=== PATIENT | male | born 1980 | race Caucasian/White ===

== ENCOUNTER 2016-09-17 18:24 | Emergency (ER) | payer OTHER ==
[~2016-09-17 18:24] MED LIST: /ESCI10TA PO; ACET50TA PO; ARTI99.0 OP; CLON-412 PO; CLON0.5T PO; DULO30CA PO; FLEX10TA2 PO; GABA-283 PO; LEXA1TAB PO; LOTE0.5S OU; META800T82 PO; MOBI7.5T10 PO; NEUR300C PO; NEXI20CA PO; PERC5TAB6 PO; PREV30CA6 PO; REST0.05 OU; ROBA750T4 PO; SOMA350T PO; SUMA25TA3 PO; TIZA2CAP3 PO; ULTR50TA PO; VALI5TAB PO; VENTAER INH; VITA200016 PO; VITAD1000T FT; XANA1TAB2 PO; flexeril PO
[2016-09-17] MEDS ORDERED: METHOCARBAMOL 500 MG TAB As Ordered ONE (21:22)
[2016-09-17] MEDS ORDERED: OXYCODONE/APAP 5MG/325MG(BULK) 1 TAB TAB As Ordered ONE (21:23)
--- NOTE | 2016-09-17 21:29 | EDDOCDS ---
Nurse's Notes [facility] Name: Teddy Hammer Age: 36 yrs Sex: Male : 1980 Arrival Date: 09/17/2016 Time: 18:24 Bed PR2 Private MD: Diagnosis: Radiculopathy, lumbosacral region Presentation: 09/17 18:33 Presenting complaint: Patient states: Patient reports that he had surgery on low back a jmb few years ago, bent over and fell and states he felt a pop in his low back. Patient reports now he feels like his legs are going "tingling". Presenting complaint: Patient states: Patient reports incident happened two days ago. Patient reports trying heating pad but did not help. Acute neurological deficits are not present. Mechanism of Injury: Fall from standing position. Adult Sepsis Screening: The patient does not have new or worsening altered mentation. Patient's respiratory rate is less than 22. Systolic blood pressure is greater than 100. Patient has a qSOFA score of 0- Negative Sepsis Screen. Suicide/Homicide risk assessment- the patient denies having any suicidal and/or homicidal ideations and does not present with any other emotional, behavioral or mental health complaints. Status: Patient is not a patient service coordinator or dependent. Transition of care: patient was not received from another setting of care. 18:33 Acuity: DAMIEN Level 4 [facility] 18:33 Method Of Arrival: Walkin/Carried/Asstd [facility] Triage Assessment: 18:38 General: Appears uncomfortable. Pain: Location: lumbar area, left low back and right jmb low back Pain currently is 7 out of 10 on a pain scale. HIV screening NA for this visit Offered previously. Neurological: Level of Consciousness is awake, alert, obeys commands, Oriented to person, place, time, Speech is normal, Facial symmetry appears normal, Facial symmetry: tongue is midline. Respiratory: Airway is patent Respiratory effort is even, unlabored, Respiratory pattern is regular, symmetrical. Derm: Skin is pink, warm & dry. Musculoskeletal: Range of motion limited in all extremities. Historical: - Allergies: ACETAMINOPHEN; cephalexin (Hives, Swelling); - Home Meds: 1. Protonix 40 mg Oral TbEC 1 tab once daily 2. Lexapro 10 mg Oral tab 1 tab once daily 3. clonidine HCl 0.1 mg Oral tab 1 tab once daily 4. Imitrex 25 mg Oral tab 1 tab as needed 5. oxycodone 5 mg Oral tab 1 tab as needed 6. Vitamin C 500 mg Oral cpER daily 7. Vitamin D Oral 1,000 unit daily - PMHx: Migraines; GERD; Anxiety; anxiety/depression; - PSHx: back surgery; left leg nerve reattachment; - Social history: Smoking status: Patient states was never smoker of tobacco. No barriers to communication noted, The patient speaks fluent Serbian, Speaks appropriately for age. - Family history: Not pertinent. - : The pt / caregiver states he / she is not on anticoagulants. Home medication list is obtained from the patient. - Exposure Risk Screening:: None identified. Screenin:26 Screening information is obtained from the patient. Fall risk: No risks identified. jmb Assistance ADL's: requires no assistance with activities of daily living. Abuse/DV Screen: The patient / caregiver reports he/she is: not in a situation that causes fear, pain or injury. Nutritional screening: No deficits noted. Advance Directives: Currently, there is no health care proxy. There is no active DNR order. There is no living will. There is no Power of Associate Quality Engineer. home support is adequate. Assessment: 21:26 General: Patient instructed on discharge instructions. Patient asked if there were any b questions regarding discharge, patient stated no. Patient signed discharge instructions. Patient discharged in stable condition. . Vital Signs: 18:26 BP 146 / 76 RA Sitting (auto/reg); Pulse 65; Resp 18; Temp 97.4(O); Pulse Ox 97% on d R/A; Weight 131.54 kg (R); Height 6 ft. 2 in. (187.96 cm) (R); Pain 7/10; 21:15 BP 157 / 89; Pulse 57; Resp 20; Temp 98.1(TE); Pulse Ox 98% on R/A; Pain 8/10; ar3 18:26 Body Mass Index 37.23 (131.54 kg, 187.96 cm) [facility] Vitals: 18:26 Log In Time: September 17, 2016 at 18:15. [facility] ED Course: 18:25 Patient visited by Alex Osorio PCA. [facility] 18:25 Patient moved to Waiting jrd 18:27 Patient visited by Alex Osorio PCA. jrd 18:27 Patient moved to Pre RCE jrd 18:35 Triage Initiated jmb 19:37 Patient moved to Triage 3 ar3 20:02 Mike Myers PA is PHCP. mo1 20:02 Guerrero Schulte DO is Attending Physician. mo1 20:25 Patient visited by Mike Myers PA. mo1 20:27 Patient moved to TR1 ar3 20:46 Patient moved to Radiology tom 21:09 Patient moved to TR1 tom 21:11 Patient moved to PR2 / 26 ar3 21:15 Patient visited by Maria Victoria Alicea PCA. ar3 21:21 Lynn Shin is Referral Physician. mo1 21:21 Ayush Connell is Referral Physician. mo1 21:26 The patient / caregiver is instructed regarding the plan of care and ED course. jmb 21:26 No IV's were initiated during this patient's visit. No procedures done that require jmb assistance. Administered Medications: 21:26 Drug: oxyCODONE-acetaminophen 4 pack 1 packets [oxycodone-acetaminophen 5 mg-325 mg jmb tablet (1 tabs)] {Co-Signature: nn1 (Regulo Dos Santos RN).} Route: PO; 21:26 Drug: Methocarbamol 1 grams [methocarbamol 500 mg tablet (2 tabs)] Route: PO; jmb Order Results: There are currently no results for this order. Outcome: 21:22 Discharge ordered by Provider. mo1 21:26 Discharge Assessment: Patient awake, alert and oriented x 3. No cognitive and/or jmb functional deficits noted. Patient verbalized understanding of disposition instructions. Patient awake and alert. obeys commands, Oriented to person, place and time. Patient verbalized understanding of disposition instructions. Patient has no functional deficits. patient administered narcotics - no. The following High Risk Discharge criteria are identified: None. Discharged to home ambulatory. Condition: stable Condition: improved. Discharge instructions given to patient, Instructed on discharge instructions, follow up and referral plans. medication usage, Demonstrated understanding of instructions, medications, Pt was receptive of discharge instructions/ teaching. Prescriptions given X 2, Work note provided to patient. No special radiology studies were completed. Property sent home with patient. 21:28 Patient left the ED. jmb Signatures: Myles Mobley Alicia, DEVELOPER AUTOMATIC DEVELOPER AUTOMATIC ar3 Mike Myers PA PA mo1 Gustabo Cardoza,RN RN jmb Alex Osorio, DEVELOPER AUTOMATIC DEVELOPER AUTOMATIC jrd Regulo Dos Santos RN nn1 MTDD
--- NOTE | 2016-09-17 21:29 | EDDOCDS ---
Physician Documentation [facility] Name: Teddy Hammer Age: 36 yrs Sex: Male : 1980 Arrival Date: 09/17/2016 Time: 18:24 Bed PR Private MD: Disposition: 09/17/16 21:22 Discharged to Home/Self Care. Impression: Radiculopathy, lumbosacral region. - Condition is Stable. - Discharge Instructions: Lumbosacral Radiculopathy. - Prescriptions for Percocet 5- 325 mg Oral Tablet - take 1 tablet by ORAL route every 6 hours As needed MDD: 4 tabs; 20 tablet. Robaxin 500 mg Oral Tablet - take 2 tablet by ORAL route every 6 hours As needed; 40 tablet. - Medication Reconciliation, Work Release Form - 2 day, Local Pharmacy Hours form. - Follow up: Private Physician; When: Call to arrange an appointment; Reason: Recheck today's complaints, Continuance of care. Follow up: Lynn Shin; When: Call to arrange an appointment; Reason: Recheck today's complaints, Continuance of care. Follow up: Ayush Connell; When: Call to arrange an appointment; Reason: Recheck today's complaints, Continuance of care. - Problem is new. - Symptoms are unchanged. Historical: - Allergies: ACETAMINOPHEN; cephalexin (Hives, Swelling); - Home Meds: 1. Protonix 40 mg Oral TbEC 1 tab once daily 2. Lexapro 10 mg Oral tab 1 tab once daily 3. clonidine HCl 0.1 mg Oral tab 1 tab once daily 4. Imitrex 25 mg Oral tab 1 tab as needed 5. oxycodone 5 mg Oral tab 1 tab as needed 6. Vitamin C 500 mg Oral cpER daily 7. Vitamin D Oral 1,000 unit daily - PMHx: Migraines; GERD; Anxiety; anxiety/depression; - PSHx: back surgery; left leg nerve reattachment; - Social history: Smoking status: Patient states was never smoker of tobacco. No barriers to communication noted, The patient speaks fluent Lao, Speaks appropriately for age. - Family history: Not pertinent. - : The pt / caregiver states he / she is not on anticoagulants. Home medication list is obtained from the patient. - Exposure Risk Screening:: None identified. Vital Signs: 09/17 18:26 BP 146 / 76 RA Sitting (auto/reg); Pulse 65; Resp 18; Temp 97.4(O); Pulse Ox 97% on jrd R/A; Weight 131.54 kg / 290 lbs (R); Height 6 ft. 2 in. (187.96 cm) (R); Pain 7/10; 21:15 BP 157 / 89; Pulse 57; Resp 20; Temp 98.1(TE); Pulse Ox 98% on R/A; Pain 8/10; ar3 18:26 Body Mass Index 37.23 (131.54 kg, 187.96 cm) jrd MDM: 20:28 Spine. Lumbosacral, Complete Ordered. EDMT 20:55 Financial registration complete. sarabjit 21:20 oxyCODONE-acetaminophen 4 pack 5 mg-325 mg 1 packets PO once; Dispense with pt, take as mo1 per instruction on package ordered. 21:20 Methocarbamol 1 grams PO once ordered. mo1 Administered Medications: 21:26 Drug: oxyCODONE-acetaminophen 4 pack 1 packets [oxycodone-acetaminophen 5 mg-325 mg jmb tablet (1 tabs)] {Co-Signature: nn1 (Regulo Dos Santos RN).} Route: PO; 21:26 Drug: Methocarbamol 1 grams [methocarbamol 500 mg tablet (2 tabs)] Route: PO; kathy Signatures: Dispatcher [employer] EDMT Mike Myers PA PA mo1 Gustabo CardozaRN Nuris Lyles RN nn1 MTDD
--- NOTE | 2016-09-18 08:22 | REP ---
LUMBAR SPINE: The bony density, bodies of the vertebrae, neural arches and disc spaces are normal. There is no fracture. The remaining structures of the abdomen and pelvis are unremarkable. IMPRESSION: There is no fracture of the spine identified. Unreviewed
--- NOTE | 2016-09-19 22:29 | EDDOCDS ---
Nurse's Notes [facility] Name: Teddy Hammer Age: 36 yrs Sex: Male : 1980 Arrival Date: 09/17/2016 Time: 18:24 Bed PR2 Private MD: Diagnosis: Radiculopathy, lumbosacral region Presentation: 09/17 18:33 Presenting complaint: Patient states: Patient reports that he had surgery on low back a jmb few years ago, bent over and fell and states he felt a pop in his low back. Patient reports now he feels like his legs are going "tingling". Presenting complaint: Patient states: Patient reports incident happened two days ago. Patient reports trying heating pad but did not help. Acute neurological deficits are not present. Mechanism of Injury: Fall from standing position. Adult Sepsis Screening: The patient does not have new or worsening altered mentation. Patient's respiratory rate is less than 22. Systolic blood pressure is greater than 100. Patient has a qSOFA score of 0- Negative Sepsis Screen. Suicide/Homicide risk assessment- the patient denies having any suicidal and/or homicidal ideations and does not present with any other emotional, behavioral or mental health complaints. Status: Patient is not a electronic field service engineer or dependent. Transition of care: patient was not received from another setting of care. 18:33 Acuity: DAMIEN Level 4 [facility] 18:33 Method Of Arrival: Walkin/Carried/Asstd [facility] Triage Assessment: 18:38 General: Appears uncomfortable. Pain: Location: lumbar area, left low back and right jmb low back Pain currently is 7 out of 10 on a pain scale. HIV screening NA for this visit Offered previously. Neurological: Level of Consciousness is awake, alert, obeys commands, Oriented to person, place, time, Speech is normal, Facial symmetry appears normal, Facial symmetry: tongue is midline. Respiratory: Airway is patent Respiratory effort is even, unlabored, Respiratory pattern is regular, symmetrical. Derm: Skin is pink, warm & dry. Musculoskeletal: Range of motion limited in all extremities. Historical: - Allergies: ACETAMINOPHEN; cephalexin (Hives, Swelling); - Home Meds: 1. Protonix 40 mg Oral TbEC 1 tab once daily 2. Lexapro 10 mg Oral tab 1 tab once daily 3. clonidine HCl 0.1 mg Oral tab 1 tab once daily 4. Imitrex 25 mg Oral tab 1 tab as needed 5. oxycodone 5 mg Oral tab 1 tab as needed 6. Vitamin C 500 mg Oral cpER daily 7. Vitamin D Oral 1,000 unit daily - PMHx: Migraines; GERD; Anxiety; anxiety/depression; - PSHx: back surgery; left leg nerve reattachment; - Social history: Smoking status: Patient states was never smoker of tobacco. No barriers to communication noted, The patient speaks fluent Sammarinese, Speaks appropriately for age. - Family history: Not pertinent. - : The pt / caregiver states he / she is not on anticoagulants. Home medication list is obtained from the patient. - Exposure Risk Screening:: None identified. Screenin:26 Screening information is obtained from the patient. Fall risk: No risks identified. jmb Assistance ADL's: requires no assistance with activities of daily living. Abuse/DV Screen: The patient / caregiver reports he/she is: not in a situation that causes fear, pain or injury. Nutritional screening: No deficits noted. Advance Directives: Currently, there is no health care proxy. There is no active DNR order. There is no living will. There is no Power of Checkering Machine Adjuster. home support is adequate. Assessment: 21:26 General: Patient instructed on discharge instructions. Patient asked if there were any b questions regarding discharge, patient stated no. Patient signed discharge instructions. Patient discharged in stable condition. . Vital Signs: 18:26 BP 146 / 76 RA Sitting (auto/reg); Pulse 65; Resp 18; Temp 97.4(O); Pulse Ox 97% on d R/A; Weight 131.54 kg (R); Height 6 ft. 2 in. (187.96 cm) (R); Pain 7/10; 21:15 BP 157 / 89; Pulse 57; Resp 20; Temp 98.1(TE); Pulse Ox 98% on R/A; Pain 8/10; ar3 18:26 Body Mass Index 37.23 (131.54 kg, 187.96 cm) [facility] Vitals: 18:26 Log In Time: September 17, 2016 at 18:15. [facility] ED Course: 18:25 Patient visited by Alex Osorio PCA. [facility] 18:25 Patient moved to Waiting jrd 18:27 Patient visited by Alex Osorio PCA. jrd 18:27 Patient moved to Pre RCE jrd 18:35 Triage Initiated jmb 19:37 Patient moved to Triage 3 ar3 20:02 Mike Myers PA is PHCP. mo1 20:02 Guerrero Schulte DO is Attending Physician. mo1 20:25 Patient visited by Mike Myers PA. mo1 20:27 Patient moved to TR1 ar3 20:46 Patient moved to Radiology tom 21:09 Patient moved to TR1 tom 21:11 Patient moved to PR2 / 26 ar3 21:15 Patient visited by Maria Victoria Alicea PCA. ar3 21:21 Lynn Shin is Referral Physician. mo1 21:21 Ayush Connell is Referral Physician. mo1 21:26 The patient / caregiver is instructed regarding the plan of care and ED course. jmb 21:26 No IV's were initiated during this patient's visit. No procedures done that require jmb assistance. 21:40 Patient name changed from Teddy\\S\\Kiel\\S\\Harman\\S\\ to Teddy\\S\\R\\S\\Harman. EDMS 21:42 [facility] [place] Agreement was scanned into [employer] and attached to record. gjb 02 08:47 Spine. Lumbosacral, Complete Returned. EDMS 10:00 T-Sheet-- Draft Copy was scanned into [employer] and attached to record. gb Administered Medications: 09/17 21:26 Drug: oxyCODONE-acetaminophen 4 pack 1 packets [oxycodone-acetaminophen 5 mg-325 mg jmb tablet (1 tabs)] {Co-Signature: nn1 (Regulo Dos Santos RN).} Route: PO; 21:26 Drug: Methocarbamol 1 grams [methocarbamol 500 mg tablet (2 tabs)] Route: PO; jmb Order Results: Radiology Order: Spine. Lumbosacral, Complete Test: Spine. Lumbosacral, Complete REASON FOR EXAMINATION: Trauma; LUMBAR SPINE:; ; The bony density, bodies of the vertebrae, neural arches and disc spaces are; normal. There is no fracture.; ; The remaining structures of the abdomen and pelvis are unremarkable.; ; IMPRESSION:; There is no fracture of the spine identified.; ; Unreviewed; Outcome: 21:22 Discharge ordered by Provider. mo1 21:26 Discharge Assessment: Patient awake, alert and oriented x 3. No cognitive and/or jmb functional deficits noted. Patient verbalized understanding of disposition instructions. Patient awake and alert. obeys commands, Oriented to person, place and time. Patient verbalized understanding of disposition instructions. Patient has no functional deficits. patient administered narcotics - no. The following High Risk Discharge criteria are identified: None. Discharged to home ambulatory. Condition: stable Condition: improved. Discharge instructions given to patient, Instructed on discharge instructions, follow up and referral plans. medication usage, Demonstrated understanding of instructions, medications, Pt was receptive of discharge instructions/ teaching. Prescriptions given X 2, Work note provided to patient. No special radiology studies were completed. Property sent home with patient. 21:28 Patient left the ED. kathy Signatures: Dispatcher [employer] EDMS Myles Mobley Gloria, Reg Reg gb Maria Victoria Alicea, DYE TANK TENDER DYE TANK TENDER ar3 Mike Myers PA PA mo1 Gustabo Cardoza, RN RN Alex Pulliam, DYE TANK TENDER DYE TANK TENDER Nuris yS RN nn1 Chart Complete MTDD
--- NOTE | 2016-09-19 22:29 | EDDOCDS ---
Physician Documentation [facility] [place] Name: Teddy Hammer Age: 36 yrs Sex: Male : 1980 Arrival Date: 09/17/2016 Time: 18:24 Bed PR Private MD: Disposition: 09/17/16 21:22 Discharged to Home/Self Care. Impression: Radiculopathy, lumbosacral region. - Condition is Stable. - Discharge Instructions: Lumbosacral Radiculopathy. - Prescriptions for Percocet 5- 325 mg Oral Tablet - take 1 tablet by ORAL route every 6 hours As needed MDD: 4 tabs; 20 tablet. Robaxin 500 mg Oral Tablet - take 2 tablet by ORAL route every 6 hours As needed; 40 tablet. - Medication Reconciliation, Work Release Form - 2 day, Local Pharmacy Hours form. - Follow up: Private Physician; When: Call to arrange an appointment; Reason: Recheck today's complaints, Continuance of care. Follow up: Lynn Shin; When: Call to arrange an appointment; Reason: Recheck today's complaints, Continuance of care. Follow up: Ayush Connell; When: Call to arrange an appointment; Reason: Recheck today's complaints, Continuance of care. - Problem is new. - Symptoms are unchanged. Historical: - Allergies: ACETAMINOPHEN; cephalexin (Hives, Swelling); - Home Meds: 1. Protonix 40 mg Oral TbEC 1 tab once daily 2. Lexapro 10 mg Oral tab 1 tab once daily 3. clonidine HCl 0.1 mg Oral tab 1 tab once daily 4. Imitrex 25 mg Oral tab 1 tab as needed 5. oxycodone 5 mg Oral tab 1 tab as needed 6. Vitamin C 500 mg Oral cpER daily 7. Vitamin D Oral 1,000 unit daily - PMHx: Migraines; GERD; Anxiety; anxiety/depression; - PSHx: back surgery; left leg nerve reattachment; - Social history: Smoking status: Patient states was never smoker of tobacco. No barriers to communication noted, The patient speaks fluent Nigerian, Speaks appropriately for age. - Family history: Not pertinent. - : The pt / caregiver states he / she is not on anticoagulants. Home medication list is obtained from the patient. - Exposure Risk Screening:: None identified. Vital Signs: 09/17 18:26 BP 146 / 76 RA Sitting (auto/reg); Pulse 65; Resp 18; Temp 97.4(O); Pulse Ox 97% on jrd R/A; Weight 131.54 kg / 290 lbs (R); Height 6 ft. 2 in. (187.96 cm) (R); Pain 7/10; 21:15 BP 157 / 89; Pulse 57; Resp 20; Temp 98.1(TE); Pulse Ox 98% on R/A; Pain 8/10; ar3 18:26 Body Mass Index 37.23 (131.54 kg, 187.96 cm) jrd MDM: 20:28 Spine. Lumbosacral, Complete Ordered. EDAL 20:55 Financial registration complete. [facility] 21:20 oxyCODONE-acetaminophen 4 pack 5 mg-325 mg 1 packets PO once; Dispense with pt, take as mo1 per instruction on package ordered. 21:20 Methocarbamol 1 grams PO once ordered. mo1 21:42 [facility] Payment Agreement was scanned into [employer] and attached to record. [facility] 09/18 10:00 T-Sheet-- Draft Copy was scanned into [employer] and attached to record. gb Administered Medications: 09/17 21:26 Drug: oxyCODONE-acetaminophen 4 pack 1 packets [oxycodone-acetaminophen 5 mg-325 mg jmb tablet (1 tabs)] {Co-Signature: nn1 (Regulo Dos Santos RN).} Route: PO; 21:26 Drug: Methocarbamol 1 grams [methocarbamol 500 mg tablet (2 tabs)] Route: PO; jmb Signatures: Dispatcher [employer] EDAL Leila Alfonso, Reg Reg gb Mike Myers PA PA mo1 Gustabo Cardoza RN RN Nuris Silvestre [facility] Regulo Dos Santos RN nn1 The chart was reviewed and I authenticate all verbal orders and agree with the evaluation and treatment provided.Attachments: 21:42 [facility] Payment Agreement [facility] 09/18 10:00 T-Sheet-- Draft Copy gb Chart Complete MTDD
--- NOTE | 2016-09-19 22:29 | EDDOCDS ---
Physician Documentation [facility] Name: Teddy Hammer Age: 36 yrs Sex: Male : 1980 Arrival Date: 09/17/2016 Time: 18:24 Bed PR Private MD: Disposition: 09/17/16 21:22 Discharged to Home/Self Care. Impression: Radiculopathy, lumbosacral region. - Condition is Stable. - Discharge Instructions: Lumbosacral Radiculopathy. - Prescriptions for Percocet 5- 325 mg Oral Tablet - take 1 tablet by ORAL route every 6 hours As needed MDD: 4 tabs; 20 tablet. Robaxin 500 mg Oral Tablet - take 2 tablet by ORAL route every 6 hours As needed; 40 tablet. - Medication Reconciliation, Work Release Form - 2 day, Local Pharmacy Hours form. - Follow up: Private Physician; When: Call to arrange an appointment; Reason: Recheck today's complaints, Continuance of care. Follow up: Lynn Shin; When: Call to arrange an appointment; Reason: Recheck today's complaints, Continuance of care. Follow up: Ayush Connell; When: Call to arrange an appointment; Reason: Recheck today's complaints, Continuance of care. - Problem is new. - Symptoms are unchanged. Historical: - Allergies: ACETAMINOPHEN; cephalexin (Hives, Swelling); - Home Meds: 1. Protonix 40 mg Oral TbEC 1 tab once daily 2. Lexapro 10 mg Oral tab 1 tab once daily 3. clonidine HCl 0.1 mg Oral tab 1 tab once daily 4. Imitrex 25 mg Oral tab 1 tab as needed 5. oxycodone 5 mg Oral tab 1 tab as needed 6. Vitamin C 500 mg Oral cpER daily 7. Vitamin D Oral 1,000 unit daily - PMHx: Migraines; GERD; Anxiety; anxiety/depression; - PSHx: back surgery; left leg nerve reattachment; - Social history: Smoking status: Patient states was never smoker of tobacco. No barriers to communication noted, The patient speaks fluent Guyanese, Speaks appropriately for age. - Family history: Not pertinent. - : The pt / caregiver states he / she is not on anticoagulants. Home medication list is obtained from the patient. - Exposure Risk Screening:: None identified. Vital Signs: 09/17 18:26 BP 146 / 76 RA Sitting (auto/reg); Pulse 65; Resp 18; Temp 97.4(O); Pulse Ox 97% on jrd R/A; Weight 131.54 kg / 290 lbs (R); Height 6 ft. 2 in. (187.96 cm) (R); Pain 7/10; 21:15 BP 157 / 89; Pulse 57; Resp 20; Temp 98.1(TE); Pulse Ox 98% on R/A; Pain 8/10; ar3 18:26 Body Mass Index 37.23 (131.54 kg, 187.96 cm) jrd MDM: 20:28 Spine. Lumbosacral, Complete Ordered. EDDE 20:55 Financial registration complete. [facility] 21:20 oxyCODONE-acetaminophen 4 pack 5 mg-325 mg 1 packets PO once; Dispense with pt, take as mo1 per instruction on package ordered. 21:20 Methocarbamol 1 grams PO once ordered. mo1 21:42 [facility] Payment Agreement was scanned into [employer] and attached to record. [facility] 09/18 10:00 T-Sheet-- Draft Copy was scanned into [employer] and attached to record. gb Administered Medications: 09/17 21:26 Drug: oxyCODONE-acetaminophen 4 pack 1 packets [oxycodone-acetaminophen 5 mg-325 mg jmb tablet (1 tabs)] {Co-Signature: nn1 (Regulo Dos Santos RN).} Route: PO; 21:26 Drug: Methocarbamol 1 grams [methocarbamol 500 mg tablet (2 tabs)] Route: PO; jmb Signatures: Dispatcher [employer] EDDE Leila Alfonso, Reg Reg gb Mike Myers PA PA mo1 Gustabo Cardoza RN RN Nuris Silvestre [facility] Regulo Dos Santos RN nn1 The chart was reviewed and I authenticate all verbal orders and agree with the evaluation and treatment provided.Attachments: 21:42 [facility] Payment Agreement [facility] 09/18 10:00 T-Sheet-- Draft Copy gb Chart Complete MTDD
== END 2016-09-17 21:28 | disposition home or self-care (01) ==
LOC: M ED 18:24
DX: M54.16 Radiculopathy, lumbar region (principal); X50.1XXA Overexertion from prolonged static or awkward postures, initial encounter; Y92.9 Unspecified place or not applicable; Y93.9 Activity, unspecified; Y99.9 Unspecified external cause status; G43.909 Migraine, unspecified, not intractable, without status migrainosus; K21.9 Gastro-esophageal reflux disease without esophagitis; F41.9 Anxiety disorder, unspecified; F32.9 Major depressive disorder, single episode, unspecified; Z79.899 Other long term (current) drug therapy; Z88.6 Allergy status to analgesic agent; Z88.1 Allergy status to other antibiotic agents

== ENCOUNTER → 2016-09-25 | Outpatient (CLI) | payer OTHER ==
--- NOTE | 2016-09-25 12:23 | REP ---
Gastric emptying nuclear scintigraphy: History: There is abdominal and epigastric pain Technique: 1.1 mCi of technetium-99m sulfur colloid was ingested in two scrambled eggs and 6 ounces of water and sequential anterior and posterior images are acquired for an 89-minute imaging observation period. Regions of interest are drawn around the stomach to plot gastric emptying. Scintigraphic findings: Expected T1/2 is 90 minutes. 63 % emptying is observed in this patient during the 89-minute imaging observation period, for a calculated T1/2 in this patient of 79 minutes. Impression: Normal gastric emptying. Signed by Dannie Mei MD 09/25/2016 12:14 P
== END ==
LOC: M RAD 08:40
PROVIDERS: ATTEND Physician Assistant
DX: R10.13 Epigastric pain (principal); R10.11 Right upper quadrant pain; R11.0 Nausea; R14.0 Abdominal distension (gaseous)
CPT/HCPCS: 78264; A9541

== ENCOUNTER 2016-10-30 19:20 | Emergency (ER) | payer OTHER ==
[~2016-10-30] VITALS: Ht 188 cm; Wt 129.3 kg
[2016-10-30] MEDS ORDERED: PROTPAK PO (19:33)
[2016-10-30] MEDS ORDERED: OXYC1SOL PO (19:33)
[2016-10-30] MEDS ORDERED: KETOROLAC 30 MG/ML VIAL (J1885) IV ONE (21:30)
[2016-10-30] MEDS ORDERED: NS 1,000 ML IV ONE (21:30)
[2016-10-30] MEDS ORDERED: ONDANSETRON 4MG/2ML VIAL (J2405) IV ONE (21:30)
[2016-10-30 22:31] LABS: BASO % 0.2 % (0.0-1.0); EOS # 0.2 K/mm3 (0.0-0.50); EOS % 2.4 % (0.0-3.0); LARGE UNSTAINED CELL # 0.1 K/mm3 (0.0-0.4); LARGE UNSTAINED CELL % 1.3 % (0.0-4.0); LYMPH # 3.3 K/mm3 (1.5-4.5); LYMPH % 39.8 % (24.0-44.0); MEAN CORPUSCULAR HEMOGLOBIN 28.5 pg (27.0-33.0); MEAN CORPUSCULAR HGB CONC 35.8 g/dl (32.0-36.5); MEAN CORPUSCULAR VOLUME 79.5 fl (80.0-96.0); MONO # 0.5 K/mm3 (0.0-0.8); NEUTROPHILS % 50.3 % (36.0-66.0); PLATELET COUNT, AUTOMATED 181 k/mm3 (150-450); RED CELL DISTRIBUTION WIDTH 14.8 % (11.5-14.5)
[2016-10-30 22:51] LABS: ALBUMIN 4.4 GM/DL (3.2-5.2); ALBUMIN/GLOBULIN RATIO 1.57 (1.00-1.93); ALKALINE PHOSPHATASE 89 U/L (45-117); ALT/SGPT 89 U/L (12-78); ANION GAP 7 MEQ/L (8-16); AST/SGOT 54 U/L (15-37); BILIRUBIN,DIRECT 0.2 MG/DL (0.0-0.2); BLOOD UREA NITROGEN 11 MG/DL (7-18); CALCIUM LEVEL 9.2 MG/DL (8.5-10.1); CARBON DIOXIDE LEVEL 27 MEQ/L (21-32); CHLORIDE LEVEL 106 MEQ/L (98-107); CREATININE FOR GFR 1.05 MG/DL (0.70-1.30); GLOMERULAR FILTRATION RATE > 60.0 (>60); GLUCOSE, FASTING 91 MG/DL (70-105); POTASSIUM SERUM 4.1 MEQ/L (3.5-5.1); SODIUM LEVEL 140 MEQ/L (136-145); TOTAL PROTEIN 7.2 GM/DL (6.4-8.2)
[2016-10-30] MEDS ORDERED: PEPC1TAB4 PO (23:23)
[2016-10-30] MEDS ORDERED: GI COCKTAIL 50ML BTL(HYOSCYAMINE/MAALOX/LIDOCAINE VISCOUS)(1:3:1) PO ONE (23:30)
[2016-10-30 23:34] VITALS: BP 144/83
== END 2016-10-30 23:51 | disposition home or self-care (01) ==
LOC: M ED 20:08
DX: K29.00 Acute gastritis without bleeding (principal); K21.9 Gastro-esophageal reflux disease without esophagitis; F99 Mental disorder, not otherwise specified; E66.9 Obesity, unspecified; Z88.6 Allergy status to analgesic agent; Z88.1 Allergy status to other antibiotic agents; Z79.899 Other long term (current) drug therapy
CPT/HCPCS: 80048; 80076; 81001; 83690; 85025; 96361; 96374; 96375; 99282; J1885; J2405

== ENCOUNTER → 2016-10-31 | Outpatient (REF) | payer OTHER ==
[~2016-10-31] MED LIST changes: +OXYC1SOL PO; +PEPC1TAB4 PO; +PROTPAK PO
== END ==
LOC: M SFHCCLAY 16:08
PROVIDERS: ATTEND Family Medicine
DX: R30.0 Dysuria (principal)
CPT/HCPCS: 81002; 87086; G0463

== ENCOUNTER → 2016-11-01 | Outpatient (REF) | payer OTHER | LOC: M SFHCCLAY 11:45 | PROVIDERS: ATTEND Family Medicine | DX: R10.11 Right upper quadrant pain (principal) ==

== ENCOUNTER → 2016-11-05 | Outpatient (CLI) | payer OTHER ==
--- NOTE | 2016-11-05 10:47 | REP ---
GALLBLADDER ULTRASOUND: 11/05/2016 COMPARISON: Ultrasound 09/05/2015, CT 04/19/2016. CLINICAL HISTORY: Right upper quadrant pain. FINDINGS: Sonographic evaluation again shows the liver homogeneous but hyperechoic diffusely representing some fatty infiltration. There appears to be some focal fat sparing near the gallbladder fossa, the usual location for this phenomenon. No intrahepatic biliary dilatation, hepatic mass, cyst or pericholecystic fluid. The gallbladder shows no stone, sludge or wall thickening. The wall is 2.2 mm and no pericholecystic fluid seen. There is no sonographic Lynch sign. The patient was tender in the midline, however. The common duct is 3.4 mm without dilatation or stone. The pancreas is limited for evaluation by gas shadowing. Those portions visible are unremarkable. Right kidney 11.6 x 4.6 x 5.1 cm. There is no hydronephrosis or stone. IMPRESSION: 1. Fatty infiltration of the liver without biliary dilatation, mass, cyst or ascites. 2. Gallbladder without calcified stone, sludge, wall thickening or pericholecystic fluid. No sonographic Lynch sign. There is tenderness in the midline, however. 3. Common duct 3.4 mm without filling defect. The limited evaluation of the pancreas show no abnormalities. The right kidney was unremarkable. Signed by Daryl Davis MD 11/05/2016 05:12 P
== END ==
LOC: M RAD 08:39
PROVIDERS: ATTEND Family Medicine
DX: R10.9 Unspecified abdominal pain (principal)

== ENCOUNTER → 2017-01-03 | Outpatient (REF) | payer OTHER ==
[2017-01-03 12:30] LABS: ALT/SGPT 65 U/L (12-78); ANION GAP 5 MEQ/L (8-16); AST/SGOT 36 U/L (15-37); BLOOD UREA NITROGEN 8 MG/DL (7-18); CALCIUM LEVEL 9.3 MG/DL (8.5-10.1); CARBON DIOXIDE LEVEL 30 MEQ/L (21-32); CHLORIDE LEVEL 107 MEQ/L (98-107); CREATININE FOR GFR 1.04 MG/DL (0.70-1.30); GLOMERULAR FILTRATION RATE > 60.0 (>60); GLUCOSE, FASTING 89 MG/DL (70-105); SODIUM LEVEL 142 MEQ/L (136-145)
[2017-01-03 12:31] LABS: ALBUMIN/GLOBULIN RATIO 1.38 (1.00-1.93); ALKALINE PHOSPHATASE 93 U/L (45-117); BILIRUBIN,DIRECT 0.1 MG/DL (0.0-0.2); BILIRUBIN,TOTAL 0.7 MG/DL (0.2-1.0); MAGNESIUM LEVEL 1.9 MG/DL (1.8-2.4); TOTAL PROTEIN 6.9 GM/DL (6.4-8.2)
== END ==
LOC: M LABDRAWC 11:33
PROVIDERS: ATTEND Physician Assistant
DX: R10.13 Epigastric pain (principal); R10.11 Right upper quadrant pain; R63.0 Anorexia; E55.9 Vitamin D deficiency, unspecified; K21.9 Gastro-esophageal reflux disease without esophagitis; R63.4 Abnormal weight loss

== ENCOUNTER → 2017-01-16 | Outpatient (CLI) | payer OTHER ==
--- NOTE | 2017-01-16 11:06 | REP ---
MRCP: MRCP exam is accomplished utilizing multiple heavily T2-weighted sequences in the axial and coronal planes. MIP reconstruction images are performed. The gallbladder demonstrates no evidence of a filling defect. There is no intrahepatic biliary dilatation. Common hepatic and common bile ducts are normal in caliber. No definite filling defect or stricture is seen. Pancreatic duct is not dilated. Other adjacent upper abdominal structures appear unremarkable with no mass, adenopathy or free fluid seen in the visualized abdomen. However, there does appear to be mild splenomegaly. The length of the spleen on coronal imaging is 14.2 cm. IMPRESSION: No biliary abnormality identified as discussed in detail above. Mild splenomegaly. Signed by Sid Caban MD 01/17/2017 05:08 P
== END ==
LOC: M RAD 09:09
PROVIDERS: ATTEND Physician Assistant
DX: R16.1 Splenomegaly, not elsewhere classified (principal); R10.13 Epigastric pain; R10.12 Left upper quadrant pain; R10.11 Right upper quadrant pain; R14.0 Abdominal distension (gaseous); R94.5 Abnormal results of liver function studies; R63.4 Abnormal weight loss

== ENCOUNTER → 2017-02-08 | Outpatient (REF) | payer OTHER ==
[~2017-02-08] MED LIST changes: +MOBI4TAB PO; -MOBI7.5T10 PO; -OXYC1SOL PO; +OXYC1SOL3 PO; +PERC5TAB12 PO; -PERC5TAB6 PO
[2017-02-08 20:06] LABS: ALBUMIN 4.2 GM/DL (3.2-5.2); ALKALINE PHOSPHATASE 95 U/L (45-117); ALT/SGPT 61 U/L (12-78); ANION GAP 5 MEQ/L (8-16); AST/SGOT 42 U/L (15-37); BILIRUBIN,TOTAL 0.8 MG/DL (0.2-1.0); BLOOD UREA NITROGEN 13 MG/DL (7-18); CALCIUM LEVEL 9.4 MG/DL (8.5-10.1); CARBON DIOXIDE LEVEL 27 MEQ/L (21-32); CHLORIDE LEVEL 107 MEQ/L (98-107); CHOLESTEROL LEVEL 190 MG/DL (<200); CREATININE FOR GFR 1.03 MG/DL (0.70-1.30); GLOMERULAR FILTRATION RATE > 60.0 (>60); GLUCOSE, FASTING 91 MG/DL (70-105); POTASSIUM SERUM 4.4 MEQ/L (3.5-5.1); SODIUM LEVEL 139 MEQ/L (136-145); TRIGLYCERIDES LEVEL 196 MG/DL (<150)
== END ==
LOC: M SFHCCLAY 10:43
PROVIDERS: ATTEND Family Medicine
DX: E66.01 Morbid (severe) obesity due to excess calories (principal)

== ENCOUNTER → 2017-02-15 | Outpatient (CLI) | payer OTHER ==
--- NOTE | 2017-02-15 15:37 | REP ---
Right foot four views: There are no comparisons. Mineralization joint spaces are normal. There is no fracture or dislocation. No foreign body. There is a calcaneal Achilles spur. Impression: No foreign body or fracture. Calcaneal Achilles spur.
== END ==
LOC: M CLY 14:48
PROVIDERS: ATTEND Family Medicine
DX: T14.8 Other injury of unspecified body region (principal)

== ENCOUNTER → 2017-05-01 | Outpatient (REF) | payer OTHER ==
[2017-05-01 17:37] LABS: MEAN CORPUSCULAR HEMOGLOBIN 27.4 pg (27.0-33.0); MEAN CORPUSCULAR HGB CONC 33.9 g/dl (32.0-36.5); MEAN CORPUSCULAR VOLUME 80.8 fl (80.0-96.0); RED CELL DISTRIBUTION WIDTH 13.4 % (11.5-14.5); WHITE BLOOD COUNT 4.6 10^3/uL (4.0-10.0)
[2017-05-01 19:27] LABS: ALBUMIN/GLOBULIN RATIO 1.33 (1.00-1.93); BILIRUBIN,DIRECT 0.2 MG/DL (0.0-0.2); BILIRUBIN,TOTAL 0.5 MG/DL (0.2-1.0)
== END ==
LOC: M LABDRAWC 16:07
PROVIDERS: ATTEND Internal Medicine Gastroenterology
DX: R94.5 Abnormal results of liver function studies (principal); R10.13 Epigastric pain

== ENCOUNTER → 2017-07-02 | Outpatient (REF) | payer OTHER ==
[2017-07-02 16:44] LABS: MEAN CORPUSCULAR HEMOGLOBIN 27.4 pg (27.0-33.0); MEAN CORPUSCULAR HGB CONC 34.6 g/dl (32.0-36.5); MEAN CORPUSCULAR VOLUME 79.2 fl (80.0-96.0); PLATELET COUNT, AUTOMATED 206 10^3/uL (150-450); RED CELL DISTRIBUTION WIDTH 13.4 % (11.5-14.5); WHITE BLOOD COUNT 6.8 10^3/uL (4.0-10.0)
[2017-07-02 17:43] LABS: ALBUMIN 4.1 GM/DL (3.2-5.2); ALBUMIN/GLOBULIN RATIO 1.37 (1.00-1.93); ALKALINE PHOSPHATASE 87 U/L (45-117); ALT/SGPT 61 U/L (12-78); ANION GAP 8 MEQ/L (8-16); AST/SGOT 36 U/L (7-37); BILIRUBIN,TOTAL 0.6 MG/DL (0.2-1.0); BLOOD UREA NITROGEN 9 MG/DL (7-18); CARBON DIOXIDE LEVEL 28 MEQ/L (21-32); CHLORIDE LEVEL 106 MEQ/L (98-107); CREATININE FOR GFR 1.05 MG/DL (0.70-1.30); GLOMERULAR FILTRATION RATE > 60.0 (>60); GLUCOSE, FASTING 84 MG/DL (70-105); POTASSIUM SERUM 4.5 MEQ/L (3.5-5.1); SODIUM LEVEL 142 MEQ/L (136-145); TOTAL PROTEIN 7.1 GM/DL (6.4-8.2)
== END ==
LOC: M LABDRAWC 16:23
PROVIDERS: ATTEND Internal Medicine Gastroenterology
DX: R10.13 Epigastric pain (principal); R19.7 Diarrhea, unspecified

== ENCOUNTER → 2017-09-25 | Outpatient (REF) | payer OTHER | LOC: M SFHCCLAY 14:37 | DX: K14.0 Glossitis (principal) | CPT/HCPCS: 87070 ==

== ENCOUNTER → 2017-10-14 | Outpatient (CLI) | payer OTHER | LOC: M CLY 08:31 | DX: M50.120 Mid-cervical disc disorder, unspecified level (principal); M54.6 Pain in thoracic spine; Q76.0 Spina bifida occulta; E78.2 Mixed hyperlipidemia | CPT/HCPCS: 84443 ==

== ENCOUNTER → 2017-10-14 | Outpatient (REF) | payer OTHER ==
[2017-10-14 11:44] LABS: CHOLESTEROL LEVEL 180 MG/DL (<200); CHOLESTEROL RISK RATIO 6.923 (<5); HDL CHOLESTEROL 26 MG/DL (>40); NON-HDL-C 154 MG/DL; TRIGLYCERIDES LEVEL 295 MG/DL (<150)
== END ==
LOC: M SFHCCLAY 08:24
DX: E78.2 Mixed hyperlipidemia (principal)

== ENCOUNTER → 2017-10-23 | Outpatient (CLI) | payer OTHER | LOC: M RAD 17:55 | DX: M54.2 Cervicalgia (principal) | CPT/HCPCS: 72125 ==

== ENCOUNTER → 2017-11-12 | Outpatient (CLI) | payer OTHER | LOC: M RAD 16:10 | DX: Q76.0 Spina bifida occulta (principal); M47.892 Other spondylosis, cervical region; M50.121 Cervical disc disorder at C4-C5 level with radiculopathy | CPT/HCPCS: 72141 ==

== ENCOUNTER → 2018-02-14 | Outpatient (CLI) | payer MEDICARE, OTHER | LOC: M CLY 15:07 | DX: S80.02XA Contusion of left knee, initial encounter (principal); W22.09XA Striking against other stationary object, initial encounter; Y92.003 Bedroom of unspecified non-institutional (private) residence as the place of occurrence of the external cause | CPT/HCPCS: 73564; G0463 ==

== ENCOUNTER → 2018-03-27 | Outpatient (CLI) | payer MEDICARE, OTHER | LOC: M PAIN 10:00 | DX: M50.10 Cervical disc disorder with radiculopathy, unspecified cervical region (principal); M79.1 Myalgia; M96.1 Postlaminectomy syndrome, not elsewhere classified; F41.9 Anxiety disorder, unspecified; K44.9 Diaphragmatic hernia without obstruction or gangrene; K21.9 Gastro-esophageal reflux disease without esophagitis; G43.909 Migraine, unspecified, not intractable, without status migrainosus; K74.60 Unspecified cirrhosis of liver; F17.220 Nicotine dependence, chewing tobacco, uncomplicated; Z79.891 Long term (current) use of opiate analgesic; Z79.899 Other long term (current) drug therapy; Z88.8 Allergy status to other drugs, medicaments and biological substances | CPT/HCPCS: G0463 ==

== ENCOUNTER → 2018-04-14 | Outpatient (CLI) | payer MEDICARE, OTHER ==
[~2018-04-14] MED LIST changes: -/ESCI10TA PO; -ACET50TA PO; -ARTI99.0 OP; +BUPIVACAINE HCL 0.25% 10 ML VIAL As Ordered; +BUPIVACAINE HCL 0.25% 30 ML VIAL As Ordered; -CLON-412 PO; -CLON0.5T PO; -DULO30CA PO; -FLEX10TA2 PO; -GABA-283 PO; -LEXA1TAB PO; -LOTE0.5S OU; -META800T82 PO; -MOBI4TAB PO; -NEUR300C PO; -NEXI20CA PO; -OXYC1SOL3 PO; -PEPC1TAB4 PO; -PERC5TAB12 PO; -PREV30CA6 PO; -PROTPAK PO; -REST0.05 OU; -ROBA750T4 PO; -SOMA350T PO; -SUMA25TA3 PO; -TIZA2CAP3 PO; +TRIAMCINOLONE ACETONIDE SUSP 40 MG/ML VIAL (J3301) As Ordered; -ULTR50TA PO; -VALI5TAB PO; -VENTAER INH; -VITA200016 PO; -VITAD1000T FT; -XANA1TAB2 PO; -flexeril PO
== END ==
LOC: M PAIN 10:15
DX: M79.1 Myalgia (principal); M54.2 Cervicalgia; M25.511 Pain in right shoulder; M25.512 Pain in left shoulder; K21.9 Gastro-esophageal reflux disease without esophagitis; G43.909 Migraine, unspecified, not intractable, without status migrainosus; K76.9 Liver disease, unspecified; F41.9 Anxiety disorder, unspecified; K44.9 Diaphragmatic hernia without obstruction or gangrene; Z79.891 Long term (current) use of opiate analgesic; Z79.899 Other long term (current) drug therapy; Z88.8 Allergy status to other drugs, medicaments and biological substances
CPT/HCPCS: J3301

== ENCOUNTER → 2018-05-05 | Outpatient (CLI) | payer MEDICARE, OTHER | LOC: M PAIN 09:15 | DX: M50.121 Cervical disc disorder at C4-C5 level with radiculopathy (principal); F41.9 Anxiety disorder, unspecified; K44.9 Diaphragmatic hernia without obstruction or gangrene; K21.9 Gastro-esophageal reflux disease without esophagitis; G43.909 Migraine, unspecified, not intractable, without status migrainosus; F17.220 Nicotine dependence, chewing tobacco, uncomplicated; Z79.891 Long term (current) use of opiate analgesic; Z79.899 Other long term (current) drug therapy | CPT/HCPCS: G0463 ==

== ENCOUNTER → 2018-05-19 | Outpatient (CLI) | payer MEDICARE, OTHER ==
[~2018-05-19] MED LIST changes: -BUPIVACAINE HCL 0.25% 10 ML VIAL As Ordered; -BUPIVACAINE HCL 0.25% 30 ML VIAL As Ordered; +ISOVUE-M 300 61% 15ML VIAL (Q9967) As Ordered; +LIDOCAINE 1% SDV INJ 30 ML VIAL As Ordered; -TRIAMCINOLONE ACETONIDE SUSP 40 MG/ML VIAL (J3301) As Ordered; +methylPREDNISolone SUSP 40 MG/ML (DEPO-medrol) VIAL (J1030) As Ordered
== END ==
LOC: M PAIN 08:45
DX: G89.29 Other chronic pain (principal); M50.10 Cervical disc disorder with radiculopathy, unspecified cervical region; F41.9 Anxiety disorder, unspecified; K44.9 Diaphragmatic hernia without obstruction or gangrene; K21.9 Gastro-esophageal reflux disease without esophagitis; G43.909 Migraine, unspecified, not intractable, without status migrainosus; K74.60 Unspecified cirrhosis of liver; F17.220 Nicotine dependence, chewing tobacco, uncomplicated; Z79.891 Long term (current) use of opiate analgesic; Z79.899 Other long term (current) drug therapy; Z88.6 Allergy status to analgesic agent; Z88.8 Allergy status to other drugs, medicaments and biological substances
CPT/HCPCS: J1030

== ENCOUNTER 2019-06-01 16:36 | Observation (INO) | payer OTHER, MEDICARE ==
[~2019-06-01] VITALS: Ht 188 cm; Wt 128.6 kg
[~2019-06-01 16:36] MED LIST changes: +ARTIDRO2 OP; +CLON-412 PO; +CLON0.5T8 PO; +DULO30CA9 PO; +FLEX10TA2 PO; +GABA-845 PO; -ISOVUE-M 300 61% 15ML VIAL (Q9967) As Ordered; +LEXA1TAB PO; -LIDOCAINE 1% SDV INJ 30 ML VIAL As Ordered; +LOTE0.5S OU; +MAPA500T17 PO; +META800T82 PO; +MOBI4TAB PO; +NEUR300C PO; +NEXI20CA PO; +OXYC1SOL3 PO; +PEPC1TAB5 PO; +PERC5TAB12 PO; +PREV30CA6 PO; +PROTPAK PO; +REST0.05 OU; +ROBA750T4 PO; +SOMA350T PO; +SUMA25TA3 PO; +TIZA2CAP PO; +ULTR50TA PO; +VALI5TAB PO; +VENTAER INH; +VITA200016 PO; +VITAD1000T FT; +XANA1TAB2 PO; +flexeril PO; -methylPREDNISolone SUSP 40 MG/ML (DEPO-medrol) VIAL (J1030) As Ordered
[2019-06-01] MEDS ORDERED: DULO1CAP6 PO (16:49)
[2019-06-01] MEDS ORDERED: OXYC-517 PO (16:49)
--- NOTE | 2019-06-01 17:18 | REP ---
Portable chest, 05:03 p.m., single AP view with the patient upright: Comparison is 12/03/2011. The lung yusuf are clear. The cardiac size is normal. The monica, mediastinum, and skeletal structures are unremarkable. Impression: Negative portable chest. Electronically Signed by Sid Royal MD 06/01/2019 05:09 P
[2019-06-01 17:34] LABS: BASO % 0.2 % (0.0-1.0); EOS # 0.1 10^3/uL (0.0-0.5); EOS % 1.7 % (0.0-3.0); HEMATOCRIT 46.5 % (42.0-52.0); HEMOGLOBIN 15.5 g/dl (13.5-17.5); LYMPH # 2.3 10^3/uL (1.5-5.0); LYMPH % 35.7 % (24.0-44.0); MEAN CORPUSCULAR HEMOGLOBIN 27.2 pg (27.0-33.0); MEAN CORPUSCULAR HGB CONC 33.3 g/dl (32.0-36.5); MEAN CORPUSCULAR VOLUME 81.6 fl (80.0-96.0); MONO # 0.5 10^3/uL (0.0-0.8); MONO % 7.8 % (0.0-5.0); NEUTROPHILS # 3.5 10^3/uL (1.5-8.5); NEUTROPHILS % 54.4 % (36.0-66.0); PLATELET COUNT, AUTOMATED 203 10^3/uL (150-450); WHITE BLOOD COUNT 6.5 10^3/uL (4.0-10.0)
--- NOTE | 2019-06-01 17:41 | REPVR ---
PROCEDURE INFORMATION: Exam: CT Head Without Contrast Exam date and time: 06/01/2019 5:08 PM Clinical history: 38 years old, male; Numbness / parasthesia; Additional info: Numbness in face TECHNIQUE: Imaging protocol: Computed tomography of the head without contrast. Radiation optimization: All CT scans at this facility use at least one of these dose optimization techniques: automated exposure control; mA and/or kV adjustment per patient size (includes targeted exams where dose is matched to clinical indication); or iterative reconstruction. COMPARISON: No relevant prior studies available. 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 No hemorrhage. No visible evolving territorial infarct. Ventricles: No ventriculomegaly. Bones/joints: Unremarkable. No acute fracture. Congenital C1 anterior neural arch defect. Sinuses: Visualized sinuses are unremarkable. No fluid levels. Mastoid air cells: Visualized mastoid air cells are well aerated. Soft tissues: Unremarkable. IMPRESSION: No acute intracranial abnormality seen. Electronically signed by: Magi Abraham On 06/01/2019 17:41:15 PM
[2019-06-01 17:45] LABS: INR 1.04; PROTHROMBIN TIME 13.3 SECONDS (11.8-14.0)
[2019-06-01 17:46] LABS: PARTIAL THROMBOPLASTIN TIME 33.4 SECONDS (25.0-38.4)
[2019-06-01 18:02] LABS: ALBUMIN 4.1 GM/DL (3.2-5.2); ALT/SGPT 87 U/L (12-78); BILIRUBIN,TOTAL 0.5 MG/DL (0.2-1.0); BLOOD UREA NITROGEN 12 MG/DL (7-18); CALCIUM LEVEL 9.4 MG/DL (8.5-10.1); CARBON DIOXIDE LEVEL 28 MEQ/L (21-32); CHLORIDE LEVEL 107 MEQ/L (98-107); CPK CREATINE PHOSPHOKINASE 318 U/L (39-308); CREATININE FOR GFR 1.17 MG/DL (0.70-1.30); GLOMERULAR FILTRATION RATE > 60.0 (>60); GLUCOSE, FASTING 99 MG/DL (70-100); MB/CK RELATIVE INDEX 0.31 (< OR =4); POTASSIUM SERUM 4.1 MEQ/L (3.5-5.1); SODIUM LEVEL 143 MEQ/L (136-145); TOTAL PROTEIN 7.4 GM/DL (6.4-8.2); TROPONIN I < 0.02 NG/ML (< 0.10)
[2019-06-01] MEDS ORDERED: METOCLOPRAMIDE INJ 10MG/2ML VIAL (J2765) IV ONE (18:15)
[2019-06-01] MEDS ORDERED: ASPIRIN 325 MG TAB PO ONE (18:15)
--- NOTE | 2019-06-01 20:11 | REPVR ---
PROCEDURE INFORMATION: Exam: MR Angiogram Head Without Contrast, Arteries Exam date and time: 06/01/2019 6:05 PM Clinical history: 38 years old, male; Weakness; Additional info: CVA TECHNIQUE: Imaging protocol: MR angiogram head without contrast. Exam focused on the arteries. COMPARISON: CT Head without contrast 06/01/2019 5:06 PM FINDINGS: Right internal carotid artery: Unremarkable. Intracranial segment is patent with no significant stenosis. No aneurysm. Right anterior cerebral artery: Unremarkable. No occlusion or significant stenosis. No aneurysm. Right middle cerebral artery: Unremarkable. No occlusion or significant stenosis. No aneurysm. Right posterior cerebral artery: Unremarkable. No occlusion or significant stenosis. No aneurysm. Right vertebral artery: Unremarkable. No occlusion or significant stenosis. No aneurysm. Left internal carotid artery: Unremarkable. Intracranial segment is patent with no significant stenosis. No aneurysm. Left anterior cerebral artery: Unremarkable. No occlusion or significant stenosis. No aneurysm. Left middle cerebral artery: Unremarkable. No occlusion or significant stenosis. No aneurysm. Left posterior cerebral artery: Unremarkable. No occlusion or significant stenosis. No aneurysm. Left vertebral artery: Unremarkable. No occlusion or significant stenosis. No aneurysm. Basilar artery: Unremarkable. No occlusion or significant stenosis. No aneurysm. IMPRESSION: No major proximal vessel branch occlusion seen. Electronically signed by: Magi Abraham On 06/01/2019 20:10:43 PM
--- NOTE | 2019-06-01 20:19 | REPVR ---
PROCEDURE INFORMATION: Exam: MR Head Without Contrast Exam date and time: 06/01/2019 6:05 PM Clinical history: 38 years old, male; Other: CVA TECHNIQUE: Imaging protocol: MR of the head without contrast. COMPARISON: CT Head without contrast 06/01/2019 5:06 PM FINDINGS: Brain: The cerebellar tonsils are better characterized on this exam. There is 4.6 mm of cerebellar tonsillar ectopia which is likely incidental, borderline mercury malformation. No acute infarct identified on the diffusion weighted imaging. No parenchymal hemorrhage. No evidence of brain parenchymal edema or intracranial mass effect. A few punctate foci of increased signal intensity within the frontal lobe subcortical white matter probably incidental reflecting trace chronic small vessel ischemic change. The FLAIR sequence demonstrates a few areas of apparent sulcal hyperintensity, potentially related to inhomogeneous CSF suppression given the presence of mild motion artifact. Such an appearance can also be seen in the setting of supplemental oxygen administration. The absence of correlative hyperdensity on the prior CT goes against subarachnoid hemorrhage. Given the localized nature of the apparent sulcal hyperintensity and the provided clinical scenario, leptomeningitis is thought to be unlikely. Ventricles: No ventriculomegaly. Bones/joints: Unremarkable. Soft tissues: Unremarkable. Sinuses: Normal as visualized. No acute sinusitis. Mastoid air cells: Normal as visualized. No mastoid effusion. Orbits: Unremarkable. IMPRESSION: No evidence of acute infarct. Electronically signed by: Magi Abraham On 06/01/2019 20:19:07 PM
[2019-06-01] MEDS ORDERED: NS 1,000 ML IV ONE (20:45)
[2019-06-01] MEDS ORDERED: oxyCODONE 5MG TAB PO PRN (20:45)
[2019-06-01] MEDS ORDERED: SUMAtriptan SUCCINATE 6 MG/0.5 ML VIAL SC ONE (21:00)
[2019-06-01] MEDS ORDERED: KETOROLAC 30 MG/ML VIAL (J1885) IV SCH (21:00)
[2019-06-01] MEDS ORDERED: FAMOTIDINE 20 MG TAB PO ONE (21:00)
[2019-06-01] MEDS ORDERED: NS 1,000 ML IV SCH (22:00)
[2019-06-01] MEDS ORDERED: HEPARIN SOD (PORCINE) 5000 UNITS/ML VIAL SQ SCH (22:00)
[2019-06-01] MEDS ORDERED: SUCR1SS PO (22:08)
[2019-06-01] MEDS ORDERED: PRIL20TA2 PO (22:08)
[2019-06-01] MEDS ORDERED: KETO10TAB PO (22:08)
[2019-06-01] MEDS ORDERED: MAXA10TA14 PO (22:08)
--- NOTE | 2019-06-01 22:18 | HPE ---
DATE OF ADMISSION: 06/01/2019 PRIMARY CARE PHYSICIAN: Dr. Avtar Amin NEUROLOGIST: Dr. Bansal ORTHOPEDIC SURGEON: Dr. Ayush Connell CHIEF COMPLAINT: Tongue and lip numbness since , worsening right-sided weakness today. HISTORY OF PRESENTING ILLNESS: This is a 38-year-old male with a history of migraine, anxiety, bilateral carpal tunnel, cervical disc disorder with radiculopathy mid cervical region, and right hand trigger middle finger, Clostridium difficile (C diff) in 2012 and mild liver cirrhosis, presents to the emergency room, brought in by his mother due to complaints of numbness at the tip of the tongue and his lips that started on while he was at home, late in the morning, sitting in the kitchen. The patient did not have any slurred speech, was able to eat and drink, was not noted to have difficulty swallowing or drooling. He was able to ambulate without much difficulty, and did not see a physician to be evaluated at that time. This then progressed onwards to now involve right-sided worsening weakness of the arm and leg. He has had a prior history of clumsiness in the right hand, diagnosed with neuropathy and bilateral carpal tunnel, to be released by orthopedic surgeon, Dr. Ayush Connell, in the future and seen by neurologist, Dr. Bansal, in the office. Since , he also complains of pounding headache, mostly behind the eyes bilaterally, taking oxycodone once daily with accompanying photophobia, watery eyes when he looks at light, and some nausea without vomiting. He has been sleeping mostly and staying in a dark room. His right side upper extremity and lower extremity have been weak for the past year and has been diagnosed with neuropathy. He does have cervical radiculopathy, which is being monitored at this time. He says that he has a chronic foot drop, usually walks unassisted, but at times needs a cane. Patient is able to ambulate within the home without any falls for the past 3 days. Worsening weakness on the right side, though, has prompted him to be brought into the emergency room by his mother. Patient otherwise denies any fever or chills. He has chronic neck pain, unchanged from prior. He has no neck rigidity. No sick contacts. In the emergency room (ER), CT of the head was negative. MRI of the brain shows no acute stroke. MRA of the brain was unremarkable. Hospitalist was called to admit for complicated migraine. Per the patient, he also complains of cold symptoms, nasal congestion, runny nose, and cough productive of white sputum currently and scant. The patient had no other recent sick contacts. PAST MEDICAL HISTORY: Hiatal hernia. Reflux. Cervical radiculopathy. Carpal tunnel syndrome bilaterally. Trigger middle finger of the right hand. Neuropathy. Acid reflux. Migraines. Chronic back pain. Elevated uric acid. Mild liver cirrhosis. Irritable bowel syndrome. Clostridium difficile in 2012. ALLERGIES: To ACETAMINOPHEN due to liver cirrhosis, DOXYCYCLINE causing a rash, CEPHALEXIN causing a rash. SURGICAL HISTORY: Upper endoscopy in [place], September 2015. Laminectomy L4-L5, May 2013. Left leg, 05/2008. Tonsillectomy, August 2012. HOME MEDICATIONS: - oxycodone 10 mg daily as needed - duloxetine 60 mg daily SOCIAL HISTORY: Patient is , currently on disability, works in construction. He used to chew tobacco, never smoked cigarettes. Currently disabled. He does not have a healthcare proxy. He has two children. FAMILY HISTORY: Mother alive, age 68. Father is , age 52, diagnosed with a heart condition which is unknown. A sister has melanoma. A brother with diabetes. He has three brothers, four sisters, and he has two sons. REVIEW OF SYSTEMS: Per history of the present illness. 12-point system otherwise negative. PHYSICAL EXAMINATION: Temperature 98.5, pulse 72, respiratory rate 18, blood pressure 133/76, 100% on room air. Admitting blood pressure was 172/101. Generally, patient is awake, alert, oriented times three, answering questions appropriately. Anicteric sclerae. No jaundice. Pupils equally round, reactive to light and accommodation. Extraocular muscles are intact. Normocephalic, atraumatic. Tongue is midline. Trachea is midline. Patient has decreased sensation on the right side of the face, both the upper forehead and lower face. He is able to stick his tongue out without any difficulty. Uvula is midline. Patient has no pronator drift, no dysmetria on [id number] testing. Motor function 5/5 times four extremities. 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 Deep tendon reflexes (DTRs) 2+. Upper and lower extremities: Decreased sensation of the right hand and leg. Patient has complaints of pain on elevation of the right lower extremity. Neck exam: Supple, full range of motion. No cervical lymphadenopathy, thyromegaly, or jugular venous distention. There is no stridor. Lungs are clear to auscultation. No wheezing, rales, or rhonchi. Heart: S1, S2, sinus rhythm. Abdomen: Obese, soft, nontender, nondistended. Positive bowel sounds times four quadrants. No hepatosplenomegaly. No abdominal bruits. LABORATORY DATA: White count 6.5, hemoglobin 15, hematocrit 46, platelet count 203. Sodium 143, potassium 4.1, chloride 107, bicarbonate 28, BUN 12, creatinine 1.17, glucose 99, calcium 9.4, total bilirubin 0.5, AST 57, ALT 87, alkaline phosphatase 95, total CK 318, MB fraction 1, troponin less than 0.02, albumin of 4.1. INR 1.04. IMAGING STUDIES: CT of the head: No acute intracranial abnormality. Chest x-ray: Negative portable chest. MRI/MRA of the brain are negative. ASSESSMENT AND PLAN: A 38-year-old male with a history of migraine symptoms, anxiety, cervical disc disorder with radiculopathy, bilateral carpal tunnel syndrome, right trigger middle finger, neuropathy, chronic back pain, Clostridium difficile, and mild liver cirrhosis, chewed tobacco and irritable bowel syndrome, currently on disability. Brought in by his mother with complaints since of the tip of the tongue and lip numbness, progressing onto worsening right- sided weakness, found to have normal MRI/MRA and CT of the head. Admitted for complicated migraine for observation. IMPRESSION: 1. Complicated migraine. Patient will be given IV Reglan, IV Toradol, IV fluid to prevent acute kidney injury, Imitrex subcutaneously (subcu) for severe symptoms, and supplementation oxygen for possible cluster headache. Due to risk of extrapyramidal symptoms, patient's duloxetine will be held for now. To decrease risk of gastritis and esophagitis, will add some Pepcid due to high doses of Toradol. Neurologist has been consulted for help in management. Dr. Lan will see the patient in the morning. 2. Bilateral carpal tunnel syndrome. Managed by Dr. Ayush Connell as an outpatient with plans for tunnel release. 3. Chronic cervical pain and back pain. Managed as an outpatient by his primary care physician. On oxycodone nightly. Avoid further opioids. 4. Acid reflux disease. Continue on Pepcid for now. 5. Obesity. Body mass index (BMI) of 36.4. Check A1c and lipid panel in the morning. Patient's blood pressure was 172 when he arrived. Will monitor patient's blood pressure. Rule out metabolic syndrome. 6. History of liver cirrhosis. Avoid acetaminophen products. Outpatient followup with his primary care and referral to import/export specialist or liver specialist if needed. 7. Hiatal hernia with acid reflux. Currently has no complaints. 8. Upper respiratory infection (URI) complaints. Check respiratory panel. Chest x-ray is negative. Monitor for now. Vigorous handwashing. 9. Deep vein thrombosis (DVT) prophylaxis. Heparin subcu. Encourage ambulation. DISCHARGE PLAN: Discharge in the morning if stable, per primary team. AMELIE
[2019-06-01 22:47] VITALS: BP 128/70
[2019-06-01] MEDS ORDERED: SUMAtriptan SUCCINATE 6 MG/0.5 ML VIAL SC PRN (23:00)
--- NOTE | 2019-06-01 23:44 | IPN ---
DATE: 06/01/2019 At 10:08 p.m. RN paged me about the patient wanting to go home since he is feeling 100% better. Patient did receive Reglan and IV Toradol and currently back to baseline, and is requesting to go home. He will followup with Dr. Bansal, [facility], for migraine management, as well as primary care physician within 1 week of discharge. AMELIE
[2019-06-02] MEDS ORDERED: diphenhydrAMINE 25 MG CAP PO ONE (01:00)
[2019-06-02] MEDS ORDERED: METOCLOPRAMIDE INJ 10MG/2ML VIAL (J2765) IV SCH (02:00)
--- NOTE | 2019-06-02 05:35 | DSES ---
DATE OF ADMISSION: 06/01/2019 DATE OF DISCHARGE: 06/01/2019 PRIMARY CARE PHYSICIAN: Dr. Avtar Amin., PRIMARY DISCHARGE DIAGNOSES: 1. Complicated migraine with complaints of facial numbness on the right and right sided weakness. 2. Chronic migraines. 3. Bilateral carpal tunnel syndrome. 4. Cervical disk disorder with radiculopathy. 5. Liver cirrhosis. DISCHARGE MEDICATIONS: - Toradol 10 mg every 6 as needed for pain, dispense 20 tablets. - Prilosec 20 daily - Maxalt 10 mg every 2 hours as needed for migraine - Carafate 10 mL by mouth twice a day for six days - oxycodone 10 mg daily - duloxetine 60 mg daily DISCHARGE INSTRUCTIONS: The patient is to call Dr. Bansal of [facility] for migraine management. Primary care physician followup within five days of hospital discharge. HOSPITAL COURSE: This is as 38-year-old male who presents to the emergency room with complaints of tongue and lip numbness since last without any dysphagia, odynophagia. Denies any fever or chills. Complains of chronic neck pain and migraines which is bifrontal, also behind the eyes rated 10/10 on a pain scale with some photophobia prompting him to sleep in a dark room and quiet room. No improvement with oxycodone at home. He then noticed increasing weakness on the right side without any falls at home, brought into the emergency room by his mother. CT of the head was negative. MRI/MRA of the head are negative. The patient is admitted for evaluation of right sided weakness prior to having the MRI performed. He was then given IV Toradol and Reglan with significant improvement and resolution of his numbness on the right face and migraine and opted to go home. LABORATORY DATA: Labs on discharge revealed white count 6.5, hemoglobin 15, hematocrit 46, platelet count 203. Sodium 143, potassium 4.1, chloride 107, bicarbonate 28, BUN 12, creatinine 1.17, glucose 99, total bilirubin (T-bili) 0.5, AST 57, ALT 87, alkaline phosphatase 95, total CK 38. MB fraction 1, troponin less than 0.02, albumin of 4.1. Microbiology: Respiratory panel is negative. IMAGING STUDIES: 06/01: CT of the head shows no acute intracranial abnormality. MRI of the brain on 06/01: No evidence of acute infarct. MRA of the brain, no major proximal vessel branch occlusion seen. TIME SPENT ON DISCHARGE: 30 minutes.
--- NOTE | 2019-06-02 06:21 | ECGEPIP ---
[facility] - ED Test Date: 2019-06-01 Pat Name: KARLEE CARTAGENA Department: Room: - Gender: Male Receivable Executive: GHAZAL : 1980 Requested By: SUKH Bales Order Number: [id number] Reading MD: Erasmo Luu Measurements Intervals Dunlap Rate: 76 P: 38 ME: 173 QRS: 30 QRSD: 96 T: 39 QT: 375 QTc: 422 Interpretive Statements SINUS RHYTHM NO PRIORS FOR COMPARISON Electronically Signed on 06-02-2019 6:21:38 EST by Erasmo Luu
[2019-06-02] MEDS ORDERED: DULoxetine 30 MG CAP (CYMBALTA) PO SCH (09:00)
[2019-06-02] MEDS ORDERED: FAMOTIDINE 20 MG TAB PO SCH (21:00)
[2019-06-05 00:06] LABS: Lyme Disease IgG/IgM Antibodie <0.91 ISR (0.00-0.90); Lyme Disease IgM Ab Quantitati <0.80 index (0.00-0.79)
== END 2019-06-01 22:37 | disposition home or self-care (01) ==
LOC: M ED 16:36 → M ED INP 19:07
PROVIDERS: ADMIT General Practice; ATTEND General Practice
DX: G43.809 Other migraine, not intractable, without status migrainosus (principal); R20.2 Paresthesia of skin; R53.1 Weakness; G43.719 Chronic migraine without aura, intractable, without status migrainosus; G56.03 Carpal tunnel syndrome, bilateral upper limbs; M50.10 Cervical disc disorder with radiculopathy, unspecified cervical region; K74.69 Other cirrhosis of liver; F41.9 Anxiety disorder, unspecified; K21.9 Gastro-esophageal reflux disease without esophagitis; K58.8 Other irritable bowel syndrome; E66.9 Obesity, unspecified; K44.9 Diaphragmatic hernia without obstruction or gangrene; Z88.1 Allergy status to other antibiotic agents; Z88.8 Allergy status to other drugs, medicaments and biological substances; Z87.891 Personal history of nicotine dependence
CPT/HCPCS: 70450; 70544; 70551; 71045; 80053; 82550; 82553; 84484; 85025; 85610; 85730; 86617; 87486; 87581; 87633; 87798; 93005; 93041; 94760; 96361; 96372; 96374; 96375; 99285; J1885; J2765

== ENCOUNTER → 2019-06-15 | Outpatient (CLI) | payer OTHER, MEDICARE ==
[~2019-06-15] MED LIST changes: +DULO1CAP6 PO; +KETO10TAB PO; +MAXA10TA14 PO; +OXYC-517 PO; +PRIL20TA2 PO; +SUCR1SS PO
--- NOTE | 2019-06-15 09:10 | REP ---
RIGHT UPPER QUADRANT ULTRASOUND: Real-time sonographic evaluation of the right upper quadrant performed. Gallbladder demonstrates no evidence of intraluminal sludge or calculi, wall thickening or pericholecystic fluid. There is no intrahepatic or extrahepatic biliary dilatation, common bile duct measuring 4 mm. Liver demonstrates diffuse heterogeneous increased echotexture compatible with diffuse fibrofatty infiltration. No gross mass is seen of the liver or the pancreas. Right kidney demonstrates no hydronephrosis with normal size 10.9 cm in length. IMPRESSION: Diffuse fibrofatty infiltration of the liver. Electronically Signed by Sid Caban MD 06/16/2019 08:37 P
== END ==
LOC: M RAD 07:26
PROVIDERS: ATTEND Family Medicine
DX: R10.9 Unspecified abdominal pain (principal)

== ENCOUNTER → 2019-10-17 | Outpatient (CLI) | payer OTHER, MEDICARE ==
[~2019-10-17] MED LIST changes: -ARTIDRO2 OP; +CLON0.5T2 PO; -CLON0.5T8 PO; +POLYOPD OP
--- NOTE | 2019-10-17 13:01 | REPVR ---
PROCEDURE INFORMATION: Exam: MR Cervical Spine Without Contrast Exam date and time: 10/17/2019 12:17 PM Age: 39 years old Clinical indication: Condition or disease; Disc degeneration; Vertebra area not specified; Additional info: Cervical disc disorder TECHNIQUE: Imaging protocol: Multiplanar magnetic resonance images of the cervical spine without contrast. COMPARISON: MRI-Spine,Cervical without con 11/12/2017 4:38 PM FINDINGS: Normal vertebral alignment with no segmental subluxation. Vertebral body height, morphology and marrow signal are normal. No fracture or destructive process. Cervical cord is normal in morphology and signal. Imaged structures within the posterior fossa are unremarkable. C2-3: No significant canal or foraminal stenosis. C3-4: Minimal disc bulge. No Significant canal or foraminal stenosis. C4-5: No significant canal or foraminal stenosis. C5-6: Mild uncovertebral arthropathy. No significant canal or high-grade foraminal stenosis. Mild asymmetric right neural foraminal stenosis, unchanged . C6-7: Minimal disc bulge. No Significant canal or foraminal stenosis. C7-T1: No significant canal or foraminal stenosis. No focal prevertebral soft tissue abnormality. IMPRESSION: Mild stable multilevel cervical spondylosis, with really no appreciable change since the prior MRI. No acute process or significant neural compression Electronically signed by: Moi Byrd On 10/17/2019 13:01:12 PM
== END ==
LOC: M RAD 09:48
PROVIDERS: ATTEND Family Medicine
DX: M47.22 Other spondylosis with radiculopathy, cervical region (principal)

== ENCOUNTER → 2020-06-30 | Outpatient (CLI) | payer OTHER, MEDICARE ==
--- NOTE | 2020-07-01 07:05 | REP ---
INDICATION: CERVICAL SPONDYLOSIS. COMPARISON: None. TECHNIQUE: AP, swimmer's, lateral and open mouth views of the cervical spine. FINDINGS: Evidence for prior anterior fixation at the C6-7 level. C1-2 through C5-6 demonstrate normal age-appropriate changes. The disc spaces are maintained. No significant osteophytosis or endplate sclerosis noted. Alignment and lordosis maintained. No acute fracture/compression injury or subluxation. Open mouth view demonstrates normal C1-C2 articulation and odontoid process. IMPRESSION: Normal age-appropriate examination from C1 through C6. Mild degenerative changes and anterior fixation at the C6-7 level. <Electronically signed by Beni Clark > 07/01/20 0702
== END ==
LOC: M CLY 11:15
PROVIDERS: ATTEND Neurological Surgery
DX: M47.812 Spondylosis without myelopathy or radiculopathy, cervical region (principal); Z98.1 Arthrodesis status

== ENCOUNTER → 2020-09-05 | Outpatient (CLI) | payer OTHER, MEDICARE ==
--- NOTE | 2020-09-06 08:04 | REP ---
INDICATION: LT LOWER LOBE PULMONARY NODULE COMPARISON: CT of the abdomen dated 04/19/2016 TECHNIQUE: Axial noncontrast images from the thoracic inlet to the upper abdomen with coronal and sagittal reformations. This CT examination was performed using the following dose reduction techniques: Automated exposure control, adjustment of mA and/or kv according to the patient's size, and use of iterative reconstruction technique. FINDINGS: Current examination demonstrates a noncalcified nodule in the left lower lobe measuring 14 mm which appears to be increased from prior examination of 2016 1 measuring 8.5 mm. Lung yusuf are otherwise well aerated and clear. No consolidation, effusion, or pneumothorax. Tracheobronchial tree is patent. No obvious significant adenopathy. The mediastinum demonstrates normal thoracic aorta, pulmonary vasculature, and heart/pericardium. Surrounding musculoskeletal structures are intact. Limited upper abdomen demonstrates normal bilateral adrenal glands. IMPRESSION: 14 mm noncalcified nodule in the left lower lobe has increased in size when compared with 2016. Consider biopsy and/or PET-CT for further investigation. <Electronically signed by Beni Clark > 09/06/20 0800
== END ==
LOC: M RAD 07:26
PROVIDERS: ATTEND Family Medicine
DX: R91.1 Solitary pulmonary nodule (principal)

== ENCOUNTER → 2020-09-16 | Outpatient (REF) | payer OTHER, MEDICARE ==
[2020-09-16 12:51] LABS: C REACTIVE PROTEIN QUANTITATIV < 0.30 MG/DL (0.00-0.30); CPK CREATINE PHOSPHOKINASE 194 U/L (39-308); IRON (FE) 80 UG/DL (65-175); PHOSPHORUS LEVEL 2.9 MG/DL (2.5-4.9); RHEUMATOID FACTOR QUANT < 10.0 IU/ML (<15.0); THYROID STIMULATING HORMONE 0.814 uIU/ML (0.358-3.740); TOTAL 25(OH) VITAMIN D 22.8 NG/ML (30.0-100.0)
[2020-09-16 12:52] LABS: TESTOSTERONE 196 NG/DL (241-827)
[2020-09-16 12:53] LABS: VITAMIN B12 LEVEL 735 PG/ML (247-911)
[2020-09-19 04:06] LABS: ANA (HEP2) Positive (.); CYCLIC CITRULLINATED PEPTIDE 5 units (0-19); SSA SJOGRENS A <0.2 AI (0.0-0.9); SSB SJOGRENS B <0.2 AI (0.0-0.9)
== END ==
LOC: M SFHCRHEU 08:25
PROVIDERS: ATTEND Internal Medicine
DX: M79.10 Myalgia, unspecified site (principal); M25.40 Effusion, unspecified joint; L65.9 Nonscarring hair loss, unspecified; R68.2 Dry mouth, unspecified

== ENCOUNTER → 2020-09-25 | Outpatient (CLI) | payer OTHER, MEDICARE ==
[2020-09-25 10:56] LABS: C REACTIVE PROTEIN QUANTITATIV < 0.30 MG/DL (0.00-0.30); CPK CREATINE PHOSPHOKINASE 335 U/L (39-308); IRON (FE) 95 UG/DL (65-175); MAGNESIUM LEVEL 2.1 MG/DL (1.8-2.4); PHOSPHORUS LEVEL 2.2 MG/DL (2.5-4.9); RHEUMATOID FACTOR QUANT < 10.0 IU/ML (<15.0); THYROID STIMULATING HORMONE 0.714 uIU/ML (0.358-3.740)
[2020-09-26 11:26] LABS: TOTAL 25(OH) VITAMIN D 27.8 NG/ML (30.0-100.0)
[2020-09-26 11:27] LABS: TESTOSTERONE 302 NG/DL (241-827)
[2020-09-26 11:28] LABS: VITAMIN B12 LEVEL 901 PG/ML (247-911)
[2020-09-27 23:06] LABS: ANA (HEP2) Positive (.); CYCLIC CITRULLINATED PEPTIDE 4 units (0-19); SSA SJOGRENS A <0.2 AI (0.0-0.9); SSB SJOGRENS B <0.2 AI (0.0-0.9)
== END ==
LOC: M LAB 09:51
PROVIDERS: ATTEND Internal Medicine
DX: M79.10 Myalgia, unspecified site (principal); M25.40 Effusion, unspecified joint; L65.9 Nonscarring hair loss, unspecified

== ENCOUNTER → 2020-10-03 | Outpatient (CLI) | payer OTHER, MEDICARE ==
--- NOTE | 2020-10-04 08:11 | REP ---
INDICATION: DIAGNOSING LUNGNODULE R91.1. Left lower lobe the lung nodule. COMPARISON: Comparison CT study September 05, 2020.. Comparison is also made with images from CT studies of the abdomen dated April 19, 2016 and July 02, 2013. TECHNIQUE: 1 hour 13 minutes following the intravenous injection of a 18.77 mCi dose of F-18 FDG, three-dimensional PET scintigraphy is acquired from the skull base to the proximal thighs. Triplanar noncontrast CT scanning is acquired through the same anatomic range for attenuation correction, and image registration with scan parameters optimized to minimize radiation exposure to the patient. PET scintigraphy and CT datasets were fused and displayed on a workstation with multiplanar and projection display capability. FINDINGS: Head and neck soft tissues are unremarkable. No supraclavicular or other cervical lymphadenopathy is seen. The known 13 mm left lower lobe pulmonary nodule shows mildly hypermetabolic uptake, maximum standard uptake value 4.33. There is a central left Silvana carinal lymph node with a short axis dimension of 10 mm showing slightly increased uptake as well. Maximum standard uptake value in this lymph node is 4.45. No other abnormal hypermetabolic uptake is seen within the thorax. No other pulmonary parenchymal uptake is observed. In the abdomen and pelvis, there is normal distribution of FDG tracer to the liver, spleen, gastrointestinal, and genitourinary tracts. No abnormal abdominal or pelvic hypermetabolic uptake is seen. IMPRESSION: Mildly hypermetabolic uptake is seen in the known 13 mm noncalcified pulmonary nodule in the left lower lobe as well as in a 10 mm left Silvana carinal lymph node in the mediastinum. The left lower lobe nodule is noted to have grown very slowly since the July 02, [address] study and benign granulomatous disease is certainly in the differential. Low-grade malignancy is not excluded. <Electronically signed by Raleigh Mei > 10/04/20 0804
== END ==
LOC: M PLARAD 13:22
PROVIDERS: ATTEND Internal Medicine Pulmonary Disease
DX: R91.1 Solitary pulmonary nodule (principal)
CPT/HCPCS: 78815; A9552

== ENCOUNTER → 2020-10-13 | Outpatient (CLI) | payer OTHER, MEDICARE ==
--- NOTE | 2020-10-13 10:31 | REP ---
INDICATION: JOINT EFFUSION OF MULTIPLE SITES. COMPARISON: None. TECHNIQUE: Bilateral hand series: Total of four views. FINDINGS: Four views of the the left and right demonstrate normal bones, joints, and soft tissues. No fracture or subluxation is seen. No opaque foreign body noted. No evidence of arthropathy seen. IMPRESSION: Negative bilateral hand series. <Electronically signed by Raleigh Mei > 10/13/20 102
--- NOTE | 2020-10-13 11:05 | REP ---
INDICATION: JOINT EFFUSION OF MULTIPLE SITES. COMPARISON: Comparison right hand radiographs are from January 28, 2012.. TECHNIQUE: Four views of the bilateral hand wrists are provided. FINDINGS: Four views of each wrist demonstrate overall normal mineralization. No bony erosive changes seen. Joint spaces are preserved. Soft tissues are unremarkable. IMPRESSION: Negative radiographs of the bilateral wrists. <Electronically signed by Raleigh Mei > 10/13/20 0264
--- NOTE | 2020-10-13 11:08 | REP ---
INDICATION: JOINT EFFUSION OF MULTIPLE SITES COMPARISON: None. TECHNIQUE: Right ankle four views. Left ankle four views. FINDINGS: Right ankle: Mineralization and joint spaces are normal. There is no effusion. There is no fracture or dislocation. There are calcaneal plantar and Achilles spurs. Left ankle: Mineralization and joint spaces are normal. There is no effusion. There is no fracture or dislocation. There are calcaneal plantar and Achilles spurs. There is no fracture or dislocation IMPRESSION: There is no effusion on the right or the left. There are bilateral calcaneal plantar and Achilles spurs. Otherwise, negative right and left ankle series. <Electronically signed by Sid Royal > 10/13/20 [id number]
== END ==
LOC: M CLY 09:42
PROVIDERS: ATTEND Internal Medicine
DX: M77.31 Calcaneal spur, right foot (principal); M77.32 Calcaneal spur, left foot; M25.40 Effusion, unspecified joint

== ENCOUNTER → 2020-10-14 | Outpatient (REF) | payer OTHER, MEDICARE ==
[2020-10-14 16:44] LABS: APPEARANCE, URINE CLEAR (CLEAR); BACTERIA, URINE AUTO NEGATIVE (NEGATIVE); BILIRUBIN, URINE AUTO NEGATIVE (NEGATIVE); BLOOD, URINE BLOOD NEGATIVE (NEGATIVE); COLOR, URINE YELLOW (YELLOW); GLUCOSE, URINE (UA) AUTO NEGATIVE (NEGATIVE); KETONE, URINE AUTO NEGATIVE (NEGATIVE); LEUKOCYTE ESTERASE, URINE AUTO NEGATIVE (NEGATIVE); NITRITE, URINE AUTO NEGATIVE (NEGATIVE); PROTEIN, URINE AUTO NEGATIVE (NEGATIVE); RBC, URINE AUTO 0 /HPF (0-3); SPECIFIC GRAVITY URINE AUTO 1.011 (1.002-1.035); SQUAMOUS EPITHELIAL CELL UR AU 0 /HPF (0-6); UROBILINOGEN, URINE AUTO 0.2 mg/dL (0.0-2.0); WBC, URINE AUTO 0 /HPF (0-3)
[2020-10-14 16:58] LABS: BASO % 0.3 % (0.0-1.0); EOS # 0.2 10^3/uL (0.0-0.5); HEMATOCRIT 48.9 % (42.0-52.0); HEMOGLOBIN 16.4 g/dl (13.5-17.5); LYMPH # 1.7 10^3/uL (1.5-5.0); LYMPH % 27.7 % (24.0-44.0); MEAN CORPUSCULAR HEMOGLOBIN 27.2 pg (27.0-33.0); MEAN CORPUSCULAR HGB CONC 33.5 g/dl (32.0-36.5); MEAN CORPUSCULAR VOLUME 81.1 fl (80.0-96.0); MONO # 0.6 10^3/uL (0.0-0.8); MONO % 8.8 % (2.0-8.0); NEUTROPHILS # 3.8 10^3/uL (1.5-8.5); PLATELET COUNT, AUTOMATED 238 10^3/uL (150-450); RED BLOOD COUNT 6.03 10^6/uL (4.30-6.10); WHITE BLOOD COUNT 6.3 10^3/uL (4.0-10.0)
[2020-10-14 17:23] LABS: CREATININE,RANDOM URINE 97.1 MG/DL; TOTAL PROTEIN,RANDOM URINE 9.7 MG/DL (0.0-12.0)
[2020-10-14 17:24] LABS: ALBUMIN 4.2 GM/DL (3.2-5.2); ALT/SGPT 75 U/L (12-78); BILIRUBIN,DIRECT 0.2 MG/DL (0.0-0.2); BILIRUBIN,TOTAL 0.5 MG/DL (0.2-1.0); BLOOD UREA NITROGEN 12 MG/DL (7-18); CALCIUM LEVEL 9.2 MG/DL (8.5-10.1); CARBON DIOXIDE LEVEL 29 MEQ/L (21-32); CHLORIDE LEVEL 106 MEQ/L (98-107); COMPLEMENT C3 131 MG/DL (90-180); COMPLEMENT C4 30 MG/DL (10-40); CREATININE FOR GFR 0.98 MG/DL (0.70-1.30); GLOMERULAR FILTRATION RATE > 60.0 (>60); GLUCOSE, FASTING 112 MG/DL (70-100); POTASSIUM SERUM 4.2 MEQ/L (3.5-5.1); SODIUM LEVEL 138 MEQ/L (136-145); TOTAL PROTEIN 7.3 GM/DL (6.4-8.2)
[2020-10-19 10:44] LABS: DRVV SCREEN 51.7 SEC
[2020-10-19 11:09] LABS: PTT LUPUS TYPE ANTICOAG SCREEN 1.3 (0-1.2)
[2020-10-19 11:15] LABS: DRVV CONFIRM 41.1 SEC; LUPUS CONFIRM RATIO 1.1
[2020-10-19 11:17] LABS: NORMALIZED RATIO 1.18 (0.00-1.20)
[2020-10-20 03:07] LABS: ANTI CENTROMERE ANTIBODY <0.2 AI (0.0-0.9); ANTI DS-DNA AB Negative (Negative); ANTI SCLERODERMA ANTIBODIES <0.2 AI (0.0-0.9); ANTI SMITH(Sm) AB <20 Units (<20); ANTI-HISTONE ANTIBODIES 1.1 Units (0.0-0.9); ANTI-U1 RNP AB <20 Units (<20); BETA-2 GLYCOPROTEIN I ABY IGA <9 (0-25); BETA-2 GLYCOPROTEIN I ABY IGG <9 (0-20); BETA-2 GLYCOPROTEIN I ABY IGM 9 (0-32); CARDIOLIPIN IGA ANTIBODY <9 APL U/mL (0-11); CARDIOLIPIN IGG ANTIBODY <9 GPL U/mL (0-14); CARDIOLIPIN IGM ANTIBODY <9 MPL U/mL (0-12); COMPLEMENT TOTAL (CH50) > 60 U/mL (>41)
== END ==
LOC: M SFHCRHEU 12:28
PROVIDERS: ATTEND Internal Medicine
DX: R76.8 Other specified abnormal immunological findings in serum (principal)

== ENCOUNTER → 2020-11-09 | Outpatient (CLI) | payer OTHER, MEDICARE ==
[2020-11-09 15:16] LABS: BASO % 0.3 % (0.0-1.0); EOS # 0.2 10^3/uL (0.0-0.5); EOS % 2.5 % (0.0-3.0); HEMATOCRIT 45.9 % (42.0-52.0); HEMOGLOBIN 15.4 g/dl (13.5-17.5); LYMPH # 1.7 10^3/uL (1.5-5.0); LYMPH % 28.4 % (24.0-44.0); MEAN CORPUSCULAR HEMOGLOBIN 26.9 pg (27.0-33.0); MEAN CORPUSCULAR HGB CONC 33.6 g/dl (32.0-36.5); MEAN CORPUSCULAR VOLUME 80.1 fl (80.0-96.0); MONO # 0.5 10^3/uL (0.0-0.8); MONO % 9.1 % (2.0-8.0); NEUTROPHILS # 3.5 10^3/uL (1.5-8.5); NEUTROPHILS % 59.4 % (36.0-66.0); PLATELET COUNT, AUTOMATED 212 10^3/uL (150-450); RED BLOOD COUNT 5.73 10^6/uL (4.30-6.10)
[2020-11-09 15:25] LABS: INR 1.03; PROTHROMBIN TIME 13.7 SECONDS (12.5-14.3)
[2020-11-09 15:26] LABS: PARTIAL THROMBOPLASTIN TIME 36.6 SECONDS (24.2-38.5)
[2020-11-09 20:40] LABS: ALT/SGPT 74 U/L (12-78); BILIRUBIN,DIRECT 0.1 MG/DL (0.0-0.2); BILIRUBIN,TOTAL 0.5 MG/DL (0.2-1.0); CALCIUM LEVEL 9.6 MG/DL (8.5-10.1); GLOMERULAR FILTRATION RATE > 60.0 (>60); TOTAL PROTEIN 6.8 GM/DL (6.4-8.2)
== END ==
LOC: M PLALAB 14:10
PROVIDERS: ATTEND Internal Medicine Pulmonary Disease
DX: R91.1 Solitary pulmonary nodule (principal)

== ENCOUNTER 2020-11-30 08:17 | Inpatient (IN) | payer OTHER, MEDICARE ==
[~2020-11-30] VITALS: Ht 188 cm; Wt 137.2 kg
[2020-11-30] MEDS ORDERED: LIDOCAINE 1% MDV 20ML VIAL As Ordered ONE ×4 (08:49→12:08)
--- NOTE | 2020-11-30 10:11 | REP ---
INDICATION: POST LEFT LUNG BIOPSY, 1 VIEW, PA EXPIRATION. COMPARISON: 08/31/2020. TECHNIQUE: Single expiratory view chest. FINDINGS: Moderate to large left pneumothorax is present. There are atelectatic changes throughout both lungs. Heart is not significantly enlarged. Mediastinal silhouette is unchanged. There may be slight deviation of the midline structures to the right. IMPRESSION: Moderate to large left pneumothorax. Dr. Washburn is being consulted. <Electronically signed by Sid Caban > 11/30/20 [id number]
[2020-11-30] MEDS ORDERED: flumazeniL 0.5 MG/5 ML VIAL As Ordered ONE ×2 (10:15→12:00)
[2020-11-30] MEDS ORDERED: MIDAZOLAM INJ 2MG/2ML VIAL (J2250 PER 1MG) As Ordered ONE (10:16)
[2020-11-30] MEDS ORDERED: RIZA10TA2 PO (10:27)
[2020-11-30] MEDS ORDERED: OMEP-218 PO (10:27)
[2020-11-30] MEDS ORDERED: KETOROLAC 30 MG/ML 1ML VIAL As Ordered ONE (11:38)
[2020-11-30] MEDS ORDERED: ISOVUE-370 76% 100ML VIAL As Ordered ONE (11:41)
[2020-11-30] MEDS ORDERED: MORPHINE 10 MG/ML 1ML VIAL (J2270) As Ordered ONE (11:42)
--- NOTE | 2020-11-30 11:47 | REP ---
INDICATION: POST CHEST TUBE PLACEMENT, 1 VIEW. COMPARISON: 11/30/2020, 9:44 a.m.. TECHNIQUE: AP portable supine chest performed. FINDINGS: A left pleural pigtail catheter has been placed, the distal end is superiorly and laterally located. There is resolution of the previously noted left pneumothorax. Scattered residual atelectatic changes seen in the left lung. IMPRESSION: Placement of left pleural pigtail catheter with resolution of left pneumothorax. <Electronically signed by Sid Caban > 11/30/20 1144
[2020-11-30] MEDS ORDERED: RIZATRIPTAN BENZOATE 10 MG TAB PO PRN (12:25)
[2020-11-30] MEDS ORDERED: KCL 20MEQ IN D5/NS 1000ML 1,000 ML IV SCH (12:25)
[2020-11-30] MEDS ORDERED: LEVALBUTEROL 1.25 MG/0.5 ML CONCENTRATE NEB NEB PRN (12:25)
[2020-11-30] MEDS ORDERED: ONDANSETRON 4MG/2ML VIAL IV PRN (12:25)
[2020-11-30] MEDS ORDERED: BISACODYL 10 MG SUPP PR PRN (12:25)
[2020-11-30] MEDS ORDERED: oxyCODONE 5MG TAB PO PRN (12:25)
--- NOTE | 2020-11-30 12:26 | REP ---
INDICATION: CHEST TUBE PLACEMENT. COMPARISON: CT 09/05/2020. radiographs earlier today. TECHNIQUE: CT chest performed without the use of intravenous contrast. Sagittal and coronal reconstruction images are performed. FINDINGS: Left chest catheter is the chest wall superiorly, not located in the pleural space. Mild air is seen in the adjacent left chest wall soft tissues. There are mild dependent atelectatic changes throughout the left lung. There is a small left hydropneumothorax inferiorly which has improved since prior radiographs today. Left lower lobe nodule is again seen. There are scattered nonenlarged mediastinal lymph nodes present. The heart is not enlarged. There is no pericardial effusion. There is no aneurysm of the thoracic aorta. IMPRESSION: Left chest catheter distal end is within the superior chest wall. Dr. Washburn aware. Small inferior left hydropneumothorax. <Electronically signed by Sid Caban > 11/30/20 1108
[2020-11-30 13:51] VITALS: BP 142/86
[2020-11-30] MEDS: LEVALBUTEROL 1.25 MG/0.5 ML CONCENTRATE NEB NEB SCH ×2 (13:52→19:46)
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
[2020-11-30] MEDS: DULoxetine 30 MG CAP (CYMBALTA) PO SCH (14:39)
[2020-11-30] MEDS: MOM 30ML SUSPENSION UDC PO SCH (14:40)
[2020-11-30] MEDS: PANTOPRAZOLE 40MG TAB (PROTONIX) PO SCH (14:40)
[2020-11-30 15:58] VITALS: BP 147/97
--- NOTE | 2020-11-30 16:20 | REP ---
INDICATION: LLL MASS. COMPARISON: None. TECHNIQUE: The procedure was performed under the direct supervision of Dr. Caban. Patient has a history of a 13 mm, noncalcified, left lower lobe pulmonary nodule which is mildly hypermetabolic on a previous PET scan dated 10/03/2020. The risks and benefits of the procedure were explained the patient and informed consent was obtained. The left lower lobe lung nodule was localized using CT guidance. The skin was prepped and draped in a sterile fashion. 1% lidocaine was used as a local anesthetic. Using CT guidance a 19/20 gauge coaxial needle biopsy system was inserted and advanced into the nodule. Only 1 core biopsy sample was able to be obtained. The patient did develop a left pneumothorax. As much air as possible was aspirated from the pleural space. Follow-up CT imaging demonstrated a reduction in size of the pneumothorax, however, honey scan 5 minutes later the pneumothorax had enlarged. At this time the patient is oxygen saturations were 96% on room air. The patient was placed on 2 L of O2 via nasal cannula. The patient complained of some crampiness in his back. His vital signs were stable. Chest x-ray performed immediately after procedure demonstrates a moderate to large left pneumothorax. Dr. Washburn was consulted. Dr. Washburn came to the department and met with patient and the patient was admitted under Dr. Washburn's care. FINDINGS: None IMPRESSION: CT-guided left lower lobe lung biopsy. The patient did develop a left pneumothorax as described above. <Electronically signed by Kameron Ramsey > 11/30/20 1600 <Electronically signed by Sid Caban > 11/30/20 1618
[2020-11-30] MEDS: KETOROLAC 30 MG/ML 1ML VIAL IV SCH (18:27)
[2020-11-30 20:00] VITALS: BP 132/58
[2020-11-30] MEDS: GABAPENTIN 400MG CAP PO SCH (20:58)
[2020-11-30] MEDS: DOCUSATE SODIUM 100MG CAPSULE PO SCH (21:00)
[2020-11-30] MEDS: HEPARIN SOD (PORCINE) 5000UNITS/ML 1ML VIAL/SYRINGE SC SCH (21:01)
[2020-12-01] VITALS: BP 120/65
[2020-12-01] MEDS: KETOROLAC 30 MG/ML 1ML VIAL IV SCH ×3 (00:11→12:02)
[2020-12-01] MEDS: LEVALBUTEROL 1.25 MG/0.5 ML CONCENTRATE NEB NEB SCH ×2 (01:29→07:33)
[2020-12-01 04:00] VITALS: BP 128/61
[2020-12-01 04:54] LABS: BASO % 0.2 % (0.0-1.0); EOS # 0.1 10^3/uL (0.0-0.5); EOS % 2.5 % (0.0-3.0); HEMATOCRIT 42.6 % (42.0-52.0); HEMOGLOBIN 14.1 g/dl (13.5-17.5); LYMPH # 1.5 10^3/uL (1.5-5.0); LYMPH % 30.7 % (24.0-44.0); MEAN CORPUSCULAR HGB CONC 33.1 g/dl (32.0-36.5); MEAN CORPUSCULAR VOLUME 81.5 fl (80.0-96.0); MONO # 0.4 10^3/uL (0.0-0.8); NEUTROPHILS # 2.8 10^3/uL (1.5-8.5); NEUTROPHILS % 57.4 % (36.0-66.0); PLATELET COUNT, AUTOMATED 189 10^3/uL (150-450); RED BLOOD COUNT 5.23 10^6/uL (4.30-6.10); WHITE BLOOD COUNT 4.8 10^3/uL (4.0-10.0)
[2020-12-01 05:11] LABS: BLOOD UREA NITROGEN 11 MG/DL (7-18); CALCIUM LEVEL 8.7 MG/DL (8.5-10.1); CARBON DIOXIDE LEVEL 26 MEQ/L (21-32); CHLORIDE LEVEL 109 MEQ/L (98-107); CREATININE FOR GFR 0.96 MG/DL (0.70-1.30); GLOMERULAR FILTRATION RATE > 60.0 (>60); GLUCOSE, FASTING 150 MG/DL (70-100); POTASSIUM SERUM 3.7 MEQ/L (3.5-5.1); SODIUM LEVEL 142 MEQ/L (136-145)
[2020-12-01 07:35] VITALS: BP 121/66
--- NOTE | 2020-12-01 08:06 | RO ---
OPERATIVE NOTE DATE OF OPERATION: 12/01/2020 PREPROCEDURE DIAGNOSIS: Pneumothorax after lung biopsy. POSTPROCEDURE DIAGNOSIS: Pneumothorax after lung biopsy. PROCEDURE: Insertion of a left chest tube. SURGEON: Kiel Washburn M.D. PATIENT FINANCIAL COORDINATOR: None. ANESTHESIA: 6 mg Versed. DESCRIPTION OF PROCEDURE: The patient was given 6 mg of Versed in 2 mg doses to which he had a paradoxical reaction of agitation. The first intercostal space at the second rib was infiltrated with 1% Lidocaine. Incision was made and a tunnel was attempted to be created into the chest. Because of his paradoxical reaction and his physiognomy, I could not enter the chest safely. Therefore, a percutaneous tube was then attempted by going an interspace lower and finally getting to the chest where I could withdraw air. The chest was of very large muscular size. The needle could hardly enter the pleural cavity pleura. Nonetheless, I could draw air and passed a guidewire. All the while, the patient was having the paradoxical agitation reaction. The incision was made around the guidewire and the tract was dilated. A percutaneous tube was then placed with somewhat great difficulty. I then attempted to remove the wire and it would not come. Therefore, the entire apparatus was removed including the wire and again, the chest was reentered using the wire. Again, the needle barely entered the chest wall into the pleura. Wire again was placed and this time, the tract was dilated once again and a percutaneous tube could be slid into the chest. The entry over the guidewire with the percutaneous tube was rather difficult. I did connect with the chest catheter to the Pleur-Evac, which showed a continuous air leak. He was then taken to the CT scanner. CT scan showed almost all of the 40% pneumothorax resolved, but the catheter was not within the pleural cavity. The catheter was therefore removed and the patient is admitted for observation. AMELIE
--- NOTE | 2020-12-01 08:17 | REP ---
INDICATION: pneumothrax COMPARISON: 11/30/2020 TECHNIQUE: PA and lateral. FINDINGS: Small left apical pneumothorax noted. Previous pigtail chest tube has been removed. Lung yusuf are relatively clear and without discrete focal consolidation or effusion. Mediastinum and cardiac silhouette are stable. Skeletal structures intact. IMPRESSION: Small left apical pneumothorax. <Electronically signed by Beni Clark > 12/01/20 0830
[2020-12-01] MEDS: DOCUSATE SODIUM 100MG CAPSULE PO SCH (09:00)
[2020-12-01] MEDS: MOM 30ML SUSPENSION UDC PO SCH (09:00)
[2020-12-01] MEDS: PANTOPRAZOLE 40MG TAB (PROTONIX) PO SCH (09:26)
[2020-12-01] MEDS: DULoxetine 30 MG CAP (CYMBALTA) PO SCH (09:26)
[2020-12-01] MEDS: HEPARIN SOD (PORCINE) 5000UNITS/ML 1ML VIAL/SYRINGE SC SCH (09:26)
[2020-12-01] MEDS: GABAPENTIN 400MG CAP PO SCH (09:26)
[2020-12-01 12:02] VITALS: BP 138/75
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
== END 2020-12-01 14:15 | disposition home or self-care (01) | DRG 201 ==
LOC: M IRPRO 08:17 → M ED INP 12:44 → M ICU 13:40
PROVIDERS: ADMIT Thoracic Surgery (Cardiothoracic Vascular Surgery); ATTEND Thoracic Surgery (Cardiothoracic Vascular Surgery)
PROC: 0BBJ3ZX Excision of Left Lower Lung Lobe, Percutaneous Approach, Diagnostic (ICD-10-PCS; 2020-11-30)
PROC: 0W9B30Z Drainage of Left Pleural Cavity with Drainage Device, Percutaneous Approach (ICD-10-PCS; principal; 2020-11-30 09:00)
DX: J95.811 Postprocedural pneumothorax (principal); G89.4 Chronic pain syndrome; R91.1 Solitary pulmonary nodule; R45.1 Restlessness and agitation; T41.3X5A Adverse effect of local anesthetics, initial encounter; Z98.1 Arthrodesis status; Z79.891 Long term (current) use of opiate analgesic; Z79.899 Other long term (current) drug therapy; Y83.8 Other surgical procedures as the cause of abnormal reaction of the patient, or of later complication, without mention of misadventure at the time of the procedure

== ENCOUNTER → 2020-12-28 | Outpatient (REF) | payer OTHER, MEDICARE ==
[~2020-12-28] MED LIST changes: +GABA-283 PO; -GABA-845 PO; +OMEP-218 PO; +RIZA10TA2 PO
== END ==
LOC: M LAB REF 15:15
PROVIDERS: ATTEND Physician Assistant
DX: R21 Rash and other nonspecific skin eruption (principal)

== ENCOUNTER → 2021-01-10 | Outpatient (CLI) | payer OTHER, MEDICARE ==
[~2021-01-10] MED LIST changes: +METHACHOLINE KIT (J7674) INH ONE
--- NOTE | 2021-01-10 09:48 | PFTRPT ---
Site: [facility], [address] [place], [address] ID: [id number] Name: KARLEE CARTAGENA Visit Date: 01/10/2021 Second ID: [id number] Referring Doctor: Michel Montano MD Reviewing Doctor: Michel Montano MD Director Of Market Intelligence: Garett JACKSON, TEJA Age: 40 : 1980 Sex: Male Race: Height: 74.00 Inches Weight: 298.00 Lbs BSA: 2.57 Order IDs: [id number] Requested Test(s): <RESP-PFT.METH CHAL> Diagnosis: R05 test appear to be valid, although the ATS standard for "end of test" was not met. Pt was given four puffs of albuterol for post bronchodilator. Review Status: Not Reviewed Pre-Bronch Post-Bronch Pred Actual %Pred Actual %Chng SPIROMETRY FVC (L) 5.96 5.15 86 5.10 FEV1 (L) 4.70 4.41 93 4.26 -3 FEV1/FVC (%) 80 86 107 83 -2 FEF 25% (L/sec) 9.50 9.29 97 9.05 -2 FEF 50% (L/sec) 6.00 5.99 99 5.63 -5 FEF 75% (L/sec) 2.19 2.30 104 1.84 -19 FEF 25-75% (L/sec) 4.29 5.12 119 4.45 -12 FEF Max (L/sec) 11.07 9.50 85 9.25 -2 FIVC (L) 5.01 4.60 -8 FIF 50% (L/sec) 5.20 9.97 191 9.68 -2 FIF Max (L/sec) 9.96 10.02 Expiratory Time (sec) 4.92 5.05 2 Back Extrap Vol (L) 0.21 0.16 -22 Time To FEFmax (sec) 0.098 0.112 14
== END ==
LOC: M CARPUL 08:53
PROVIDERS: ATTEND Internal Medicine Pulmonary Disease
DX: R05 Cough (principal)

== ENCOUNTER → 2021-01-19 | Outpatient (REF) | payer OTHER, MEDICARE ==
[~2021-01-19] MED LIST changes: -METHACHOLINE KIT (J7674) INH ONE
== END ==
LOC: M SFHCCLAY 09:36
PROVIDERS: ATTEND Family Medicine
DX: R19.7 Diarrhea, unspecified (principal)

== ENCOUNTER → 2021-01-20 | Outpatient (REF) | payer OTHER, MEDICARE | LOC: M LAB REF 16:12 | PROVIDERS: ATTEND Family Medicine | DX: R19.7 Diarrhea, unspecified (principal) ==

== ENCOUNTER → 2021-02-11 | Outpatient (CLI) | payer OTHER, MEDICARE ==
--- NOTE | 2021-02-13 20:03 | SLEEPCENT ---
DATE: 02/11/2021 NOCTURNAL POLYSOMNOGRAPHY ORDERED BY: Michel Montano MD Nocturnal polysomnography was performed for evaluation of sleep physiology in this patient with a history of excessive somnolence and nonrestorative sleep. Eight hours and 3 minutes of data were reviewed. There were 432 minutes of sleep identified. Sleep latency was normal at 17 minutes. REM sleep was delayed at 371.5 minutes. Sleep architecture showed poor progression and some fragmentation. There was one REM cycle late in the study. Overall sleep efficiency was 90.8%. The electrocardiogram showed a sinus rhythm with an average heart rate of 64 beats per minute. Rate ranged 58-82. EEG showed reasonably normal waveforms for wake and sleep. Some EKG artifact was noted. There were 170 respiratory events identified of 10 seconds in duration or greater for an apnea-hypopnea index of 23.6. The events were obstructive, not exclusive to sleep stage nor body posture. Arousals from respiratory events occurred 5.8 times per hour, and oxygen desaturations were seen into the upper 80s. There was significant limb activity but limb movement arousal index was only 3.1. IMPRESSIONS: 1. Obstructive sleep apnea syndrome (G47.33). 2. Apnea-hypopnea index 23.6. RECOMMENDATION: The patient should be encouraged to return to the [facility] for [facility]. In the interim, alcohol and sedative avoidance should be practiced and caution exercised during the operation of motor vehicles. cc: SLADE DUMONT MD
== END ==
LOC: M SLEEP 20:00
PROVIDERS: ATTEND Internal Medicine Pulmonary Disease
DX: G47.33 Obstructive sleep apnea (adult) (pediatric) (principal)

== ENCOUNTER → 2021-03-03 | Outpatient (CLI) | payer OTHER, MEDICARE ==
[~2021-03-03] MED LIST changes: +OMEP-173 PO; -OMEP-218 PO
== END ==
LOC: M RAD 16:51
PROVIDERS: ATTEND Internal Medicine Pulmonary Disease
DX: R91.1 Solitary pulmonary nodule (principal)

== ENCOUNTER → 2021-05-16 | Outpatient (REF) | payer OTHER, MEDICARE ==
[~2021-05-16] MED LIST changes: -OMEP-173 PO; +OMEP-218 PO
[2021-05-16 11:43] LABS: HEMATOCRIT 46.8 % (42.0-52.0); HEMOGLOBIN 15.6 g/dl (13.5-17.5); MEAN CORPUSCULAR HEMOGLOBIN 26.8 pg (27.0-33.0); MEAN CORPUSCULAR HGB CONC 33.3 g/dl (32.0-36.5); MEAN CORPUSCULAR VOLUME 80.3 fl (80.0-96.0); PLATELET COUNT, AUTOMATED 187 10^3/uL (150-450); RED BLOOD COUNT 5.83 10^6/uL (4.30-6.10); WHITE BLOOD COUNT 6.6 10^3/uL (4.0-10.0)
[2021-05-16 12:17] LABS: ALBUMIN 3.7 GM/DL (3.2-5.2); ALT/SGPT 71 U/L (12-78); BILIRUBIN,TOTAL 1.1 MG/DL (0.2-1.0); BLOOD UREA NITROGEN 10 MG/DL (7-18); CALCIUM LEVEL 9.4 MG/DL (8.5-10.1); CARBON DIOXIDE LEVEL 31 MEQ/L (21-32); CHLORIDE LEVEL 108 MEQ/L (98-107); CHOLESTEROL LEVEL 206 MG/DL (<200); CHOLESTEROL RISK RATIO 5.722 (<5); GLOMERULAR FILTRATION RATE > 60.0 (>60); GLUCOSE, FASTING 99 MG/DL (70-100); HDL CHOLESTEROL 36 MG/DL (>40); LDL CHOLESTEROL 141 MG/DL (<100); NON-HDL-C 170 MG/DL; POTASSIUM SERUM 4.6 MEQ/L (3.5-5.1); SODIUM LEVEL 141 MEQ/L (136-145); TOTAL PROTEIN 6.7 GM/DL (6.4-8.2); TRIGLYCERIDES LEVEL 144 MG/DL (<150)
[2021-05-16 13:02] LABS: HEMOGLOBIN A1c 5.4 %
== END ==
LOC: M SFHCCLAY 08:57
PROVIDERS: ATTEND Family Medicine
DX: L40.50 Arthropathic psoriasis, unspecified (principal); E78.2 Mixed hyperlipidemia

== ENCOUNTER → 2021-07-14 | Outpatient (CLI) | payer OTHER, MEDICARE ==
[~2021-07-14] MED LIST changes: +OMEP-173 PO; -OMEP-218 PO
== END ==
LOC: M RAD 07:39
PROVIDERS: ATTEND Surgery
DX: R10.11 Right upper quadrant pain (principal)

== ENCOUNTER → 2021-07-31 | Outpatient (REF) | payer OTHER, MEDICARE ==
[~2021-07-31] MED LIST changes: -OMEP-173 PO; +OMEP-218 PO
[2021-07-31 18:42] LABS: C REACTIVE PROTEIN QUANTITATIV < 0.30 MG/DL (0.00-0.30); PHOSPHORUS LEVEL 3.7 MG/DL (2.5-4.9)
[2021-07-31 18:54] LABS: TOTAL 25(OH) VITAMIN D 22.6 NG/ML (30.0-100.0)
== END ==
LOC: M SFHCRHEU 12:13
PROVIDERS: ATTEND Internal Medicine
DX: M35.9 Systemic involvement of connective tissue, unspecified (principal); E55.9 Vitamin D deficiency, unspecified; M79.10 Myalgia, unspecified site

== ENCOUNTER → 2021-07-31 | Outpatient (CLI) | payer OTHER, MEDICARE ==
--- NOTE | 2021-07-31 10:09 | REP ---
INDICATION: SOFT TISSUE MASS COMPARISON: None. TECHNIQUE: Limited grayscale ultrasound examination using curved array transducer. FINDINGS: Limited directed ultrasound examination overlying the palpable area in the upper right posterior thorax demonstrates no obvious acute abnormality by ultrasound. IMPRESSION: No obvious abnormality by sonographic evaluation. <Electronically signed by Beni Clark > 07/31/21 1002
== END ==
LOC: M RAD 09:44
PROVIDERS: ATTEND Family Medicine
DX: M79.89 Other specified soft tissue disorders (principal)

== ENCOUNTER → 2021-08-04 | Outpatient (CLI) | payer OTHER, MEDICARE | LOC: M SLEEP 20:00 | PROVIDERS: ATTEND Internal Medicine Pulmonary Disease | DX: G47.33 Obstructive sleep apnea (adult) (pediatric) (principal) ==

== ENCOUNTER → 2021-08-25 | Outpatient (CLI) | payer OTHER, MEDICARE ==
[~2021-08-25] MED LIST changes: +OMEP-173 PO; -OMEP-218 PO
== END ==
LOC: M PLARAD 11:57
PROVIDERS: ATTEND Physician Assistant Medical
DX: G43.019 Migraine without aura, intractable, without status migrainosus (principal); M54.81 Occipital neuralgia; M54.6 Pain in thoracic spine; R20.2 Paresthesia of skin; M47.894 Other spondylosis, thoracic region; M54.2 Cervicalgia; M47.892 Other spondylosis, cervical region

== ENCOUNTER → 2021-09-15 | Outpatient (CLI) | payer OTHER, MEDICARE | LOC: M PLAIMG 08:55 | PROVIDERS: ATTEND Internal Medicine Pulmonary Disease | DX: R91.1 Solitary pulmonary nodule (principal) ==

== ENCOUNTER → 2021-09-26 | Outpatient (REF) | payer OTHER, MEDICARE ==
[2021-09-26 17:08] LABS: HEMATOCRIT 46.8 % (42.0-52.0); HEMOGLOBIN 15.4 g/dl (13.5-17.5); MEAN CORPUSCULAR HEMOGLOBIN 26.5 pg (27.0-33.0); MEAN CORPUSCULAR HGB CONC 32.9 g/dl (32.0-36.5); MEAN CORPUSCULAR VOLUME 80.6 fl (80.0-96.0); PLATELET COUNT, AUTOMATED 194 10^3/uL (150-450); RED BLOOD COUNT 5.81 10^6/uL (4.30-6.10); WHITE BLOOD COUNT 4.7 10^3/uL (4.0-10.0)
[2021-09-26 17:49] LABS: ALBUMIN 3.9 GM/DL (3.2-5.2); ALT/SGPT 59 U/L (12-78); BILIRUBIN,TOTAL 0.5 MG/DL (0.2-1.0); BLOOD UREA NITROGEN 10 MG/DL (7-18); CALCIUM LEVEL 9.3 MG/DL (8.5-10.1); CARBON DIOXIDE LEVEL 30 MEQ/L (21-32); CHLORIDE LEVEL 106 MEQ/L (98-107); CREATININE FOR GFR 1.05 MG/DL (0.70-1.30); FREE T4 0.86 NG/DL (0.76-1.46); GLOMERULAR FILTRATION RATE > 60.0 (>60); GLUCOSE, FASTING 131 MG/DL (70-100); POTASSIUM SERUM 4.5 MEQ/L (3.5-5.1); SODIUM LEVEL 140 MEQ/L (136-145)
== END ==
LOC: M SFHCCLAY 11:05
PROVIDERS: ATTEND Family Medicine
DX: R53.82 Chronic fatigue, unspecified (principal); Z12.5 Encounter for screening for malignant neoplasm of prostate

== ENCOUNTER → 2021-12-01 | Outpatient (CLI) | payer OTHER, MEDICARE | LOC: M PAIN 09:00 | PROVIDERS: ATTEND Nurse Practitioner Family | DX: M50.10 Cervical disc disorder with radiculopathy, unspecified cervical region (principal); G89.29 Other chronic pain; G43.909 Migraine, unspecified, not intractable, without status migrainosus; F17.220 Nicotine dependence, chewing tobacco, uncomplicated; Z86.59 Personal history of other mental and behavioral disorders; Z88.1 Allergy status to other antibiotic agents; Z88.6 Allergy status to analgesic agent; Z79.891 Long term (current) use of opiate analgesic; Z79.899 Other long term (current) drug therapy ==

== ENCOUNTER → 2022-02-14 | Outpatient (CLI) | payer OTHER, MEDICARE | LOC: M PLAIMG 06:50 | PROVIDERS: ATTEND Family Medicine | DX: M54.12 Radiculopathy, cervical region (principal) ==

== ENCOUNTER → 2022-03-30 | Outpatient (CLI) | payer OTHER, MEDICARE ==
[~2022-03-30] MED LIST changes: -MAXA10TA14 PO; +RIZA10TA64 PO
== END ==
LOC: M PLAIMG 13:57
PROVIDERS: ATTEND Internal Medicine Pulmonary Disease
DX: R91.1 Solitary pulmonary nodule (principal)

== ENCOUNTER → 2022-04-13 | Outpatient (REF) | payer OTHER, MEDICARE ==
[2022-04-13 17:13] LABS: C REACTIVE PROTEIN QUANTITATIV < 0.30 MG/DL (0.00-0.30); PHOSPHORUS LEVEL 3.9 MG/DL (2.5-4.9)
== END ==
LOC: M SFHCRHEU 12:36
PROVIDERS: ATTEND Internal Medicine
DX: E55.9 Vitamin D deficiency, unspecified (principal); M25.40 Effusion, unspecified joint; M79.10 Myalgia, unspecified site

== ENCOUNTER → 2022-09-17 | Outpatient (CLI) | payer OTHER, MEDICARE | LOC: M CLY 13:19 | PROVIDERS: ATTEND Internal Medicine | DX: M79.671 Pain in right foot (principal) ==

== ENCOUNTER 2022-12-26 22:43 | Emergency (ER) | payer OTHER, MEDICARE ==
[~2022-12-26] VITALS: Ht 188 cm; Wt 136.9 kg
[~2022-12-26 22:43] MED LIST changes: +ARTIDRO4 OP; -POLYOPD OP
[2022-12-26] MEDS ORDERED: ISOVUE-370 76% 100ML VIAL As Ordered ONE (23:43)
[2022-12-27 00:33] LABS: BASO % 0.3 % (0.0-1.0); EOS # 0.1 10^3/uL (0.0-0.5); EOS % 2.2 % (0.0-3.0); HEMOGLOBIN 14.9 g/dl (13.5-17.5); LYMPH # 1.5 10^3/uL (1.5-5.0); LYMPH % 22.9 % (24.0-44.0); MEAN CORPUSCULAR HEMOGLOBIN 26.7 pg (27.0-33.0); MEAN CORPUSCULAR HGB CONC 33.9 g/dl (32.0-36.5); MEAN CORPUSCULAR VOLUME 78.9 fl (80.0-96.0); MONO # 0.5 10^3/uL (0.0-0.8); NEUTROPHILS # 4.2 10^3/uL (1.5-8.5); NEUTROPHILS % 66.1 % (36.0-66.0); PLATELET COUNT, AUTOMATED 210 10^3/uL (150-450); RED BLOOD COUNT 5.58 10^6/uL (4.30-6.10); WHITE BLOOD COUNT 6.4 10^3/uL (4.0-10.0)
[2022-12-27 02:22] VITALS: BP 126/74
== END 2022-12-27 02:25 | disposition home or self-care (01) ==
LOC: M ED 22:43
DX: H53.412 Scotoma involving central area, left eye (principal); G43.909 Migraine, unspecified, not intractable, without status migrainosus; M54.9 Dorsalgia, unspecified; K21.9 Gastro-esophageal reflux disease without esophagitis; F32.A Depression, unspecified; Z88.5 Allergy status to narcotic agent; Z88.1 Allergy status to other antibiotic agents; Z88.8 Allergy status to other drugs, medicaments and biological substances; Z79.899 Other long term (current) drug therapy
CPT/HCPCS: 36415; 70470; 80047; 85025; 93005; 99284; Q9967

== ENCOUNTER → 2023-03-12 | Outpatient (CLI) | payer OTHER, MEDICARE ==
[~2023-03-12] MED LIST changes: -GABA-283 PO; +GABA-284 PO
== END ==
LOC: M PLAIMG 07:32
PROVIDERS: ATTEND Psychiatry & Neurology Neurology
DX: M54.81 Occipital neuralgia (principal); G43.809 Other migraine, not intractable, without status migrainosus; R42 Dizziness and giddiness

== ENCOUNTER → 2023-04-12 | Outpatient (REF) | payer OTHER, MEDICARE ==
[2023-04-12 17:01] LABS: APPEARANCE, URINE CLEAR (CLEAR); BACTERIA, URINE AUTO NEGATIVE (NEGATIVE); BILIRUBIN, URINE AUTO NEGATIVE (NEGATIVE); BLOOD, URINE BLOOD 1+ (NEGATIVE); COLOR, URINE YELLOW (YELLOW); GLUCOSE, URINE (UA) AUTO NEGATIVE (NEGATIVE); KETONE, URINE AUTO NEGATIVE (NEGATIVE); LEUKOCYTE ESTERASE, URINE AUTO NEGATIVE (NEGATIVE); NITRITE, URINE AUTO NEGATIVE (NEGATIVE); PROTEIN, URINE AUTO NEGATIVE (NEGATIVE); RBC, URINE AUTO 0 /HPF (0-3); SPECIFIC GRAVITY URINE AUTO 1.016 (1.002-1.035); SQUAMOUS EPITHELIAL CELL UR AU 0 /HPF (0-6); UROBILINOGEN, URINE AUTO 0.2 mg/dL (0.0-2.0); WBC, URINE AUTO 1 /HPF (0-3)
[2023-04-12 17:33] LABS: TOTAL PROTEIN,RANDOM URINE 15.6 MG/DL (0.0-14.0)
[2023-04-12 17:36] LABS: CREATININE,RANDOM URINE 175.9 MG/DL
[2023-04-12 18:07] LABS: BASO % 0.2 % (0.0-1.0); EOS # 0.3 10^3/uL (0.0-0.5); EOS % 4.9 % (0.0-3.0); HEMATOCRIT 49.2 % (42.0-52.0); HEMOGLOBIN 16.3 g/dl (13.5-17.5); LYMPH # 1.8 10^3/uL (1.5-5.0); LYMPH % 29.4 % (24.0-44.0); MEAN CORPUSCULAR HEMOGLOBIN 26.7 pg (27.0-33.0); MEAN CORPUSCULAR HGB CONC 33.1 g/dl (32.0-36.5); MEAN CORPUSCULAR VOLUME 80.7 fl (80.0-96.0); MONO # 0.5 10^3/uL (0.0-0.8); MONO % 8.1 % (2.0-8.0); NEUTROPHILS # 3.4 10^3/uL (1.5-8.5); NEUTROPHILS % 57.2 % (36.0-66.0); PLATELET COUNT, AUTOMATED 217 10^3/uL (150-450)
[2023-04-12 18:18] LABS: ERYTHROCYTE SEDIMENTATION RATE 7 mm/hr (0-15)
[2023-04-12 18:37] LABS: C REACTIVE PROTEIN QUANTITATIV < 0.40 MG/DL (<1.0)
[2023-04-12 18:39] LABS: TOTAL 25(OH) VITAMIN D 32.2 NG/ML (20.0-100.0)
[2023-04-12 18:40] LABS: ALBUMIN 4.3 G/DL (3.2-5.2); ALKALINE PHOSPHATASE 100 U/L (46-116); ALT/SGPT 59 U/L (7.0-40); AST/SGOT 48 U/L (<34); BILIRUBIN,DIRECT 0.3 MG/DL (<0.4); BILIRUBIN,TOTAL 0.8 MG/DL (0.3-1.2); BLOOD UREA NITROGEN 15 MG/DL (9-23); CALCIUM LEVEL 9.3 MG/DL (8.5-10.1); CARBON DIOXIDE LEVEL 28 MMOL/L (20-31); CHLORIDE LEVEL 103 MMOL/L (98-107); CREATININE FOR GFR 1.08 MG/DL (0.70-1.30); GLOMERULAR FILTRATION RATE > 60.0 (>60); GLUCOSE, FASTING 92 MG/DL (60-100); PHOSPHORUS LEVEL 3.8 MG/DL (2.5-4.9); SODIUM LEVEL 140 MMOL/L (136-145); TOTAL PROTEIN 7.3 G/DL (5.7-8.2)
[2023-04-13 19:14] LABS: COMPLEMENT C3 142.1 MG/DL (90.0-170.0); COMPLEMENT C4 39.6 MG/DL (12-36)
[2023-04-15 09:47] LABS: DRVV SCREEN 42.9 SECONDS
[2023-04-15 10:13] LABS: PTT LUPUS TYPE ANTICOAG SCREEN 1.07 (0-1.20)
[2023-04-15 15:12] LABS: COMPLEMENT TOTAL (CH50) > 60 U/mL (>41)
== END ==
LOC: M SFHCRHEU 13:53
PROVIDERS: ATTEND Internal Medicine
DX: R76.8 Other specified abnormal immunological findings in serum (principal); E55.9 Vitamin D deficiency, unspecified; M25.40 Effusion, unspecified joint; M35.9 Systemic involvement of connective tissue, unspecified; Z79.899 Other long term (current) drug therapy

== ENCOUNTER → 2023-06-04 | Outpatient (CLI) | payer OTHER, MEDICARE | LOC: M RAD 06:45 | PROVIDERS: ATTEND Internal Medicine | DX: R74.8 Abnormal levels of other serum enzymes (principal) ==

== ENCOUNTER → 2023-08-14 | Outpatient (CLI) | payer OTHER, MEDICARE | LOC: M CLY 09:25 | PROVIDERS: ATTEND Family Medicine | DX: M47.814 Spondylosis without myelopathy or radiculopathy, thoracic region (principal) ==

== ENCOUNTER → 2023-09-11 | Outpatient (REF) | payer OTHER, MEDICARE ==
[2023-09-11 13:00] LABS: HEMATOCRIT 48.8 % (42.0-52.0); HEMOGLOBIN 16.1 g/dl (13.5-17.5); MEAN CORPUSCULAR HEMOGLOBIN 26.2 pg (27.0-33.0); MEAN CORPUSCULAR VOLUME 79.3 fl (80.0-96.0); PLATELET COUNT, AUTOMATED 204 10^3/uL (150-450); RED BLOOD COUNT 6.15 10^6/uL (4.30-6.10); WHITE BLOOD COUNT 5.5 10^3/uL (4.0-10.0)
[2023-09-11 13:24] LABS: HEMOGLOBIN A1c 5.5 % (4.0-6.0)
[2023-09-11 14:14] LABS: ALKALINE PHOSPHATASE 97 U/L (46-116); ALT/SGPT 63 U/L (7.0-40); AST/SGOT 46 U/L (<34); BLOOD UREA NITROGEN 12 MG/DL (9-23); CALCIUM LEVEL 9.3 MG/DL (8.5-10.1); CARBON DIOXIDE LEVEL 30 MMOL/L (20-31); CHLORIDE LEVEL 107 MMOL/L (98-107); CHOLESTEROL LEVEL 184 MG/DL (<200); CREATININE FOR GFR 1.15 MG/DL (0.70-1.30); GLOMERULAR FILTRATION RATE > 60.0 (>60); GLUCOSE, FASTING 106 MG/DL (60-100); HDL CHOLESTEROL 32.8 MG/DL (>40); LDL CHOLESTEROL 128.2 MG/DL (<100); NON-HDL-C 151.2 MG/DL; POTASSIUM SERUM 4.5 MMOL/L (3.5-5.1); SODIUM LEVEL 140 MMOL/L (136-145); TOTAL PROTEIN 6.7 G/DL (5.7-8.2); TRIGLYCERIDES LEVEL 115 MG/DL (<150)
== END ==
LOC: M SFHCCLAY 08:14
PROVIDERS: ATTEND Family Medicine
DX: Z00.00 Encounter for general adult medical examination without abnormal findings (principal); E78.00 Pure hypercholesterolemia, unspecified

== ENCOUNTER → 2023-11-25 | Outpatient (REF) | payer OTHER, MEDICARE ==
[2023-11-25 12:12] LABS: INR 0.99; PROTHROMBIN TIME 12.8 SECONDS (12.5-14.5)
[2023-11-25 12:24] LABS: ALBUMIN 3.4 G/DL (3.2-5.2); ALKALINE PHOSPHATASE 95 U/L (46-116); ALT/SGPT 68 U/L (7.0-40); AST/SGOT 46 U/L (<34); BILIRUBIN,DIRECT 0.2 MG/DL (<0.4); BILIRUBIN,TOTAL 0.5 MG/DL (0.3-1.2); IRON (FE) 73 UG/DL (65-175); PERCENT SATURATION 18.1 % (19.7-50.0); TOTAL IRON BINDING CAPACITY 404 UG/DL (250-425); TOTAL PROTEIN 6.4 G/DL (5.7-8.2)
[2023-11-25 12:25] LABS: IMMUNOGLOBULIN A 121.3 MG/DL (40-350)
[2023-11-25 12:59] LABS: HEPATITIS C VIRUS ABY INDEX < 0.02 INDEX (<0.8)
[2023-11-25 13:00] LABS: HEPATITIS B CORE ANTIBODY IGM NEGATIVE (NEGATIVE)
== END ==
LOC: M LABDRAWC 11:30
PROVIDERS: ATTEND Internal Medicine Gastroenterology
DX: K75.81 Nonalcoholic steatohepatitis (NASH) (principal)

== ENCOUNTER → 2023-12-12 | Outpatient (CLI) | payer OTHER, MEDICARE | LOC: M RAD 08:44 | PROVIDERS: ATTEND Internal Medicine Gastroenterology | DX: K76.0 Fatty (change of) liver, not elsewhere classified (principal) ==

== ENCOUNTER → 2024-01-06 | Outpatient (REF) | payer OTHER, MEDICARE ==
[2024-01-06 16:47] LABS: C REACTIVE PROTEIN QUANTITATIV < 0.40 MG/DL (<1.0)
[2024-01-06 16:49] LABS: ALBUMIN 4.3 G/DL (3.2-5.2); ALKALINE PHOSPHATASE 104 U/L (46-116); ALT/SGPT 82 U/L (7.0-40); AST/SGOT 50 U/L (<34); BILIRUBIN,DIRECT 0.2 MG/DL (<0.4); BILIRUBIN,TOTAL 0.5 MG/DL (0.3-1.2); BLOOD UREA NITROGEN 14 MG/DL (9-23); CALCIUM LEVEL 9.8 MG/DL (8.5-10.1); CARBON DIOXIDE LEVEL 30 MMOL/L (20-31); CHLORIDE LEVEL 104 MMOL/L (98-107); CREATININE FOR GFR 1.07 MG/DL (0.70-1.30); GLOMERULAR FILTRATION RATE > 60.0 (>60); GLUCOSE, FASTING 116 MG/DL (60-100); POTASSIUM SERUM 4.3 MMOL/L (3.5-5.1); RHEUMATOID FACTOR QUANT 7.4 IU/ML (<14); SODIUM LEVEL 138 MMOL/L (136-145)
[2024-01-06 16:54] LABS: BASO % 0.4 % (0.0-1.0); EOS # 0.3 10^3/uL (0.0-0.5); EOS % 4.6 % (0.0-3.0); HEMATOCRIT 48.6 % (42.0-52.0); HEMOGLOBIN 16.2 g/dl (13.5-17.5); LYMPH # 1.7 10^3/uL (1.5-5.0); LYMPH % 30.5 % (24.0-44.0); MEAN CORPUSCULAR HEMOGLOBIN 26.3 pg (27.0-33.0); MEAN CORPUSCULAR HGB CONC 33.3 g/dl (32.0-36.5); MONO # 0.5 10^3/uL (0.0-0.8); MONO % 8.8 % (2.0-8.0); NEUTROPHILS % 55.5 % (36.0-66.0); PLATELET COUNT, AUTOMATED 216 10^3/uL (150-450); RED BLOOD COUNT 6.15 10^6/uL (4.30-6.10); WHITE BLOOD COUNT 5.4 10^3/uL (4.0-10.0)
[2024-01-06 17:06] LABS: ERYTHROCYTE SEDIMENTATION RATE 6 mm/hr (0-15)
== END ==
LOC: M SFHCRHEU 12:01
PROVIDERS: ATTEND Internal Medicine
DX: L40.9 Psoriasis, unspecified (principal); M35.9 Systemic involvement of connective tissue, unspecified; E55.9 Vitamin D deficiency, unspecified

== ENCOUNTER → 2024-01-21 | Outpatient (CLI) | payer OTHER, MEDICARE | LOC: M PLAIMG 07:10 | PROVIDERS: ATTEND Internal Medicine | DX: M79.641 Pain in right hand (principal); M79.642 Pain in left hand ==

== ENCOUNTER → 2024-05-12 | Outpatient (CLI) | payer OTHER, MEDICARE | LOC: M CLY 12:11 | PROVIDERS: ATTEND Family Medicine | DX: M54.42 Lumbago with sciatica, left side (principal) ==

== ENCOUNTER → 2024-05-22 | Outpatient (CLI) | payer OTHER, MEDICARE | LOC: M RAD 08:42 | PROVIDERS: ATTEND Internal Medicine Pulmonary Disease | DX: R91.1 Solitary pulmonary nodule (principal) ==

== ENCOUNTER → 2024-05-22 | Outpatient (CLI) | payer OTHER, MEDICARE | LOC: M CLY 09:44 | PROVIDERS: ATTEND Family Medicine | DX: M54.42 Lumbago with sciatica, left side (principal); R91.1 Solitary pulmonary nodule ==

== ENCOUNTER → 2024-06-27 | Outpatient (CLI) | payer OTHER, MEDICARE | LOC: M RAD 10:17 | PROVIDERS: ATTEND Family Medicine | DX: Q76.0 Spina bifida occulta (principal); M96.1 Postlaminectomy syndrome, not elsewhere classified; M54.41 Lumbago with sciatica, right side ==

== ENCOUNTER → 2024-10-12 | Outpatient (CLI) | payer OTHER, MEDICARE | LOC: M PLAIMG 09:00 | PROVIDERS: ATTEND Student in an Organized Health Care Education/Training Program | DX: M47.892 Other spondylosis, cervical region (principal); Z98.1 Arthrodesis status ==

== ENCOUNTER → 2024-11-27 | Outpatient (REF) | payer OTHER, MEDICARE ==
[2024-11-27 18:30] LABS: ALBUMIN 3.8 G/DL (3.2-5.2); ALKALINE PHOSPHATASE 102 U/L (40-129); ALT/SGPT 59 U/L (7.0-40); AST/SGOT 36 U/L (<34); BILIRUBIN,TOTAL 0.5 MG/DL (0.3-1.2); BLOOD UREA NITROGEN 12 MG/DL (9-23); C REACTIVE PROTEIN QUANTITATIV 0.7 MG/DL (<1.0); CALCIUM LEVEL 9.3 MG/DL (8.5-10.1); CARBON DIOXIDE LEVEL 29 MMOL/L (20-31); CHLORIDE LEVEL 103 MMOL/L (98-107); CHOLESTEROL LEVEL 191 MG/DL (<200); CHOLESTEROL RISK RATIO 5.53 (<5); CREATININE FOR GFR 0.96 MG/DL (0.70-1.30); GLOMERULAR FILTRATION RATE > 90.0 (>60); GLUCOSE, FASTING 129 MG/DL (60-100); HDL CHOLESTEROL 34.5 MG/DL (>40); LDL CHOLESTEROL 122.7 MG/DL (<100); NON-HDL-C 156.5 MG/DL; POTASSIUM SERUM 4.3 MMOL/L (3.5-5.1); SODIUM LEVEL 140 MMOL/L (136-145); TOTAL PROTEIN 6.7 G/DL (5.7-8.2); TRIGLYCERIDES LEVEL 169 MG/DL (<150)
[2024-11-27 18:33] LABS: TOTAL 25(OH) VITAMIN D 38.8 NG/ML (20.0-100.0)
[2024-11-27 18:44] LABS: HEMOGLOBIN A1c 5.7 % (4.0-6.0)
== END ==
LOC: M SFHCCLAY 10:32
PROVIDERS: ATTEND Physician Assistant
DX: M96.1 Postlaminectomy syndrome, not elsewhere classified (principal); L40.50 Arthropathic psoriasis, unspecified; M50.10 Cervical disc disorder with radiculopathy, unspecified cervical region; G47.33 Obstructive sleep apnea (adult) (pediatric); K21.9 Gastro-esophageal reflux disease without esophagitis; R79.89 Other specified abnormal findings of blood chemistry; E55.9 Vitamin D deficiency, unspecified

== ENCOUNTER → 2024-11-27 | Outpatient (REF) | payer OTHER, MEDICARE | LOC: M LABDRAWC 17:24 | PROVIDERS: ATTEND Internal Medicine Gastroenterology | DX: K75.81 Nonalcoholic steatohepatitis (NASH) (principal); R74.01 Elevation of levels of liver transaminase levels ==

== ENCOUNTER → 2025-03-02 | Outpatient (REF) | payer OTHER, MEDICARE ==
[~2025-03-02] MED LIST changes: +APRE30TA3 PO
[2025-03-02 13:48] LABS: BASO # 0.0 10^3/uL (0.0-0.2); BASO % 0.3 % (0.0-1.0); EOS # 0.2 10^3/uL (0.0-0.5); EOS % 2.0 % (0.0-3.0); LYMPH # 1.6 10^3/uL (1.5-5.0); LYMPH % 22.0 % (24.0-44.0); MONO # 0.5 10^3/uL (0.0-0.8); MONO % 6.6 % (2.0-8.0); NEUTROPHILS # 5.1 10^3/uL (1.5-8.5); NEUTROPHILS % 69.0 % (36.0-66.0); PLATELET COUNT, AUTOMATED 230 10^3/uL (150-450)
[2025-03-02 14:10] LABS: ALT/SGPT 63.0 U/L (7.0-40); AST/SGOT 41.0 U/L (<34); CALCIUM LEVEL 9.3 MG/DL (8.5-10.1); CARBON DIOXIDE LEVEL 28.0 MMOL/L (20-31); CHLORIDE LEVEL 102.0 MMOL/L (98-107); CREATININE FOR GFR 1.12 MG/DL (0.70-1.30); GLOMERULAR FILTRATION RATE 82.6 (>60); POTASSIUM SERUM 4.4 MMOL/L (3.5-5.1); SODIUM LEVEL 141.0 MMOL/L (136-145)
== END ==
LOC: M SFHCCLAY 09:01
PROVIDERS: ATTEND Physician Assistant
DX: R10.11 Right upper quadrant pain (principal)

== ENCOUNTER → 2025-07-28 | Outpatient (CLI) | payer OTHER, MEDICARE ==
[2025-07-28 13:18] LABS: APPEARANCE, URINE CLEAR (CLEAR); BACTERIA, URINE AUTO NEGATIVE (NEGATIVE); BILIRUBIN, URINE AUTO NEGATIVE (NEGATIVE); BLOOD, URINE BLOOD NEGATIVE (NEGATIVE); GLUCOSE, URINE (UA) AUTO NEGATIVE (NEGATIVE); KETONE, URINE AUTO NEGATIVE (NEGATIVE); LEUKOCYTE ESTERASE, URINE AUTO NEGATIVE (NEGATIVE); MUCUS, URINE SMALL (NEGATIVE); NITRITE, URINE AUTO NEGATIVE (NEGATIVE); PROTEIN, URINE AUTO NEGATIVE (NEGATIVE); RBC, URINE AUTO 0 /HPF (0-3); SPECIFIC GRAVITY URINE AUTO 1.016 (1.002-1.035); SQUAMOUS EPITHELIAL CELL UR AU 0 /HPF (0-6); UROBILINOGEN, URINE AUTO 0.2 mg/dL (0.0-2.0); WBC, URINE AUTO 0 /HPF (0-3)
== END ==
LOC: M LAB 12:52
PROVIDERS: ATTEND Neurological Surgery
DX: R30.0 Dysuria (principal)